=== PATIENT | male | born 1950 | race Caucasian/White ===

== ENCOUNTER → 2016-03-29 | Outpatient (CLI) | payer OTHER ==
[~2016-03-29] MED LIST: ALL300 PO; ASPI325T45 PO; ATOR-26 PO; CHOL100010 PO; OFLO0.3S4 OPR; RAMI10CA PO; RAMI5CAP32 PO; SILD100T PO
[2016-03-29 11:18] LABS: BLOOD UREA NITROGEN 12 mg/dl (7-18); BUN/CREATININE RATIO 12.4 (10-20); CALCIUM 9.2 mg/dl (8.5-10.1); CARBON DIOXIDE 27 mmol/L (21-32); CHLORIDE 105 mmol/L (98-107); GLUCOSE 97 mg/dl (70-99); SODIUM 140 mmol/L (136-145)
== END | disposition home or self-care (01) ==
LOC: C.LABBC 08:49
PROVIDERS: ATTEND Internal Medicine Geriatric Medicine
DX: I10 Essential (primary) hypertension (principal); M19.90 Unspecified osteoarthritis, unspecified site; M10.9 Gout, unspecified; E78.5 Hyperlipidemia, unspecified; E04.1 Nontoxic single thyroid nodule; E55.9 Vitamin D deficiency, unspecified

== ENCOUNTER → 2016-04-06 | Outpatient (CLI) | payer OTHER ==
--- NOTE | 2016-04-06 10:30 | DIAGNOSTIC IMAGING REPORT ---
THYROID ULTRASOUND CLINICAL HISTORY: Solitary thyroid nodule. COMPARISON STUDY: Carotid ultrasound April 08, 2014 and thyroid ultrasound April 12, 2015. TECHNIQUE: Sonography of the thyroid gland was performed. FINDINGS: The right thyroid lobe measures 5.1 x 2.1 x 2.3 cm and the left lobe measures 4.2 x 1.5 x 1.7 cm. The previously biopsied 1.3 x 1 x 1 cm hypoechoic round right lobe thyroid nodule is unchanged since initial ultrasound of April 08, 2014. No additional thyroid nodules are present. IMPRESSION: No change in the previously biopsied 1.3 cm right lobe thyroid nodule. Electronically signed by: Geo Stuart M.D. 04/06/2016 10:29 AM Dictated Date/Time: 04/06/2016 10:19 AM
== END | disposition home or self-care (01) ==
LOC: C.ULTRBC 09:55
PROVIDERS: ATTEND Internal Medicine Geriatric Medicine
DX: E04.1 Nontoxic single thyroid nodule (principal)

== ENCOUNTER → 2016-06-07 | Day surgery (SDC) | payer OTHER ==
[2016-05-30 08:08] VITALS: Ht 177.8 cm; Wt 105.5 kg
[~2016-06-07] VITALS: Ht 177.8 cm; Wt 105.5 kg
[~2016-06-07] MED LIST changes: +500ML BSS 0.3ML EPI 1:1000PF IRRIG ONE; +ACETAMINOPHEN 325 MG TAB PO PRN; -ALL300 PO; +AMVISC PLUS 0.8ML SYRINGE INT OCU ONE; +ATROPINE SULFATE 0.1 MG/ML 5ML SYR IV PRN; +AcetaZOLAMIDE 250 MG TAB PO SCH; +BETAXOLOL HCL 0.25% OP SUSP PER DROP CHARGE OPR SCH; +BRIMONIDINE TART 0.2% OP SOLN PER DROP CHARGE ONE; +BSS FLUSH ONE; +ENDOCOAT 0.85ML SYRINGE INT OCU ONE; +EpHEDrine SULFATE INJ 50 MG/ML AMP IV PRN; +EpINEphrine INJ 1MG/ML AMP 1 MG/ML AMP ONE; +FENTANYL CITRATE INJ 50 MCG/1 ML 2 ML VIAL IV PRN; +FLUMAZENIL 0.1 MG/1 ML 10 ML VIAL IV PRN; +HYDROmorphone INJ 2 MG/ML SYR/VIAL IV PRN; +LABETALOL HCL IV 5 MG/ML 20ML IV PRN; +LACTATED RINGER'S 1000ML 500 ML IV SCH; +LIDOCAINE 4% OP SOLN DROP CHARGE ONE; +LIDOCAINE 4% OP SOLN DROP CHARGE OPR SCH; +LIDOCAINE HCL 1% MPF 2 ML VIAL ONE; +MEPERIDINE HCL 25 MG/ML CARP IV PRN; +MIDAZOLAM HCL 1 MG/ML 2ML VIAL ONE; +MIX: 4ML BSS 1ML EPI 1:1000 PF INSTIL ONE; +MOXIFLOXACIN OPH SOLN PER DROP CHARGE ONE; +NALOXONE HCL 0.4 MG/1 ML VIAL/CARP IV PRN; +NURSING VERBAL MED ORDER ONE; +OCUCOAT 1 ML SOLN IO ONE; +ONDANSETRON INJ 2 MG/ML 2 ML VIAL IV PRN; +PHENYLEPHRINE 100MCG/ML 5ML SYR IV PRN; +POVIDONE-IODINE OP SOLN 30 ML BTL ONE; +PROPARACAINE 0.5% OP SOLN PER DROP CHARGE OPR SCH; -RAMI5CAP32 PO; -SILD100T PO; +TOBRAMYCIN/DEXAMETHASONE OPH OINT PER APPLN CHARGE ONE
[2016-06-07] MEDS: PHENYLEPHRINE HCL 2.5% OP SOLN PER DROP CHARGE OPR SCH ×2 (07:20→07:25)
[2016-06-07] MEDS: TROPICAMIDE 1% OP SOLN PER DROP CHARGE OPR SCH ×2 (07:21→07:26)
[2016-06-07] MEDS: CYCLOPENTOLATE HCL 1% OP SOLN PER DROP CHARGE OPR SCH ×2 (07:22→07:27)
[2016-06-07] MEDS: MOXIFLOXACIN OPH SOLN PER DROP CHARGE OPR SCH ×2 (07:23→07:34)
--- NOTE | 2016-06-07 07:51 | History & Physical Bridge - [place] ---
H&P Re-Evaluation Bridge Note: I have examined the patient, reviewed the History & Physical and in the interval since the performance of the History & Physical I have noted the following changes of clinical significance: No changes noted
--- NOTE | 2016-06-07 08:07 | Discharge Instructions-SurgCtr ---
Discharge Instructions Date of Service Jun 07, 2016. Visit Reason for Visit: Cataract Right Eye Discharge Discharge Diagnosis / Problem: lens implant right eye Discharge Goals Goal(s): Improve function Activity Recommendations Activity Limitations: resume your previous activity Lifting Limitations: no more than 10 pounds Exercise/Sports Limitations: gradually increase as tolerated May Resume Sexual Activity: when tolerated Shower/Bathe: tomorrow Driving or Machine Use: resume 1 day after discharge Anesthesia . Post Anesthesia Instructions: If you have had General Anesthesia or IV Sedation: * Do not drive today. * Resume driving when surgeon permits. * Do not make important decisions or sign legal documents today. * Call surgeon for: 1. Temperature elevations greater than 101 degrees F. 2. Uncontrollable pain. 3. Excessive bleeding. 4. Persistent nausea and vomiting. 5. Medication intolerance (nausea, vomiting or rash). * For nausea and vomiting use only clear liquids such as: tea, soda, bouillon until nausea subsides, then gradually increase diet as tolerated. * If you have any concerns or questions, call your surgeon's office. If physician is unavailable and it is an emergency, call 911 or go to the nearest emergency room. . Instructions / Follow-Up Instructions / Follow-Up ACTIVITY RECOMMENDATIONS: * Light activities. * Mild irritation and blurred vision are common for the first few days. * You may walk outside, read, watch television. * Redness around the white part of the eye is common. MEDICATIONS: Resume previous medications unless instructed otherwise by your surgeon. * Take white Diamox (Acetazolamide) tablet at 1 pm today. Start all eye drops at 1 pm today: * Eye drops (today and tomorrow): Prednisone - one drop in operative eye every 3 hours while awake Ofloxacin - one drop in operative eye every 3 hours while awake SPECIAL CARE INSTRUCTIONS: * Tape plastic shield over eye to sleep at night. Call your doctor at with any concerns or problems. FOLLOW UP VISIT: Follow-up with Dr Jane at [place] office as scheduled. Diet Recommendations Home Diet: no limitations Procedures Procedures Performed: cataract extraction with lens implant Pending Studies Studies pending at discharge: no Medical Emergencies . Who to Call and When: Medical Emergencies: If at any time you feel your situation is an emergency, please call 911 immediately. . Non-Emergent Contact Non-Emergency issues call your: Director Intelligence Analysis Programs Call Non-Emergent contact if: your pain is not controlled [phone] . . "Provider Documentation" section prepared by Elie Jane.
--- NOTE | 2016-06-07 08:08 | [facility] Operative Report ---
Operative Report Date of Service Jun 07, 2016. Operative Report 1. PREOPERATIVE DIAGNOSIS: Senile nuclear cataract, right eye. 2. POSTOPERATIVE DIAGNOSIS: Senile nuclear cataract, right eye. 3. PROCEDURE: Phacoemulsification of right cataract with posterior chamber lens implant, type Bausch [employer] Lomb, model MX60, power +17.0 diopters. ANESTHESIA: Local standby. SURGEON: Dr. Jane. COMPLICATIONS: None. OPERATING TIME: 10 minutes. 4. OPERATION AND FINDINGS: DESCRIPTION OF PROCEDURE: The right pupil was dilated. The anesthetic was administered using a topical technique. The right eye was prepped and draped. A speculum was placed. A clear corneal incision was formed. The chamber was filled with Amvisc Plus and Endocoat. Epinephrine solution was used. A paracentesis was placed. A capsulorrhexis was performed. The nucleus was hydrodissected. The lens was removed with phacoemulsification. Time was 5.74 seconds. The aspiration unit was used to remove the cortex. The capsule was filled with Amvisc Plus. The lens implant was folded and placed into the capsule. The incision was hydrated. The Amvisc was aspirated. The wound was secure. The chamber was deep. The pupil was round. Brimonidine, TobraDex ointment and Vigamox solution were placed. The speculum was removed. The patient was returned to the Recovery Room in stable condition. I attest to the content of the Intraoperative Record and any orders documented therein. Any exceptions are noted below. The scribe's documentation has been prepared in my presence, under my direction and personally reviewed by me in its entirety. I confirm that the note above accurately reflects all work, treatment, procedures, and medical decision making performed by me. I personally scribed for Elie Jane M.D. (GEMA) on 06/07/16 at 08:08. Electronically submitted by Erin Carr (PERLA).
[2016-06-07 08:11] VITALS: TEMP 36.7
--- NOTE | 2016-06-07 08:28 | Anesthesia Progress Nt - [facility] ---
Anesthesia Post Op Note Date & Time Jun 07, 2016 at 08:27 Vital Signs Pain Intensity: 0 Vital Signs Past 12 Hours Date Time Temp Pulse Resp B/P Pulse Ox O2 Delivery O2 Flow Rate FiO2 06/07/16 08:11 36.7 73 18 107/69 94 Room Air 06/07/16 07:08 36.6 68 18 145/84 94 Room Air Notes Mental Status: alert / awake / arousable, participated in evaluation Pt Amnestic to Procedure: Yes Nausea / Vomiting: adequately controlled Pain: adequately controlled Airway Patency, RR, SpO2: stable & adequate BP & HR: stable & adequate Hydration State: stable & adequate Anesthetic Complications: no major complications apparent
[2016-06-07 08:34] VITALS: BP 114/77; PULSE 73; O2SAT 95
== END | disposition home or self-care (01) ==
LOC: X.SURG 06:57
PROVIDERS: ATTEND Specialist
DX: H25.11 Age-related nuclear cataract, right eye (principal); I10 Essential (primary) hypertension; N42.9 Disorder of prostate, unspecified

== ENCOUNTER → 2016-06-21 | Day surgery (SDC) | payer OTHER ==
[2016-06-20 10:30] VITALS: Ht 177.8 cm; Wt 105.5 kg
[~2016-06-21] VITALS: Ht 177.8 cm; Wt 105.5 kg
[~2016-06-21] MED LIST changes: -ATROPINE SULFATE 0.1 MG/ML 5ML SYR IV PRN; +BETAXOLOL HCL 0.25% OP SUSP PER DROP CHARGE OPL SCH; -BETAXOLOL HCL 0.25% OP SUSP PER DROP CHARGE OPR SCH; -EpHEDrine SULFATE INJ 50 MG/ML AMP IV PRN; -FENTANYL CITRATE INJ 50 MCG/1 ML 2 ML VIAL IV PRN; -FLUMAZENIL 0.1 MG/1 ML 10 ML VIAL IV PRN; -HYDROmorphone INJ 2 MG/ML SYR/VIAL IV PRN; -LABETALOL HCL IV 5 MG/ML 20ML IV PRN; +LIDOCAINE 4% OP SOLN DROP CHARGE OPL SCH; -LIDOCAINE 4% OP SOLN DROP CHARGE OPR SCH; -MEPERIDINE HCL 25 MG/ML CARP IV PRN; -NALOXONE HCL 0.4 MG/1 ML VIAL/CARP IV PRN; -NURSING VERBAL MED ORDER ONE; -ONDANSETRON INJ 2 MG/ML 2 ML VIAL IV PRN; -PHENYLEPHRINE 100MCG/ML 5ML SYR IV PRN; +PROPARACAINE 0.5% OP SOLN PER DROP CHARGE OPL SCH; -PROPARACAINE 0.5% OP SOLN PER DROP CHARGE OPR SCH
[2016-06-21] MEDS: PHENYLEPHRINE HCL 2.5% OP SOLN PER DROP CHARGE OPL SCH ×2 (11:47→11:52)
[2016-06-21] MEDS: TROPICAMIDE 1% OP SOLN PER DROP CHARGE OPL SCH ×2 (11:48→11:53)
[2016-06-21] MEDS: CYCLOPENTOLATE HCL 1% OP SOLN PER DROP CHARGE OPL SCH ×2 (11:49→11:54)
[2016-06-21] MEDS: MOXIFLOXACIN OPH SOLN PER DROP CHARGE OPL SCH ×2 (11:50→12:00)
--- NOTE | 2016-06-21 12:24 | Discharge Instructions-SurgCtr ---
Discharge Instructions Date of Service Jun 21, 2016. Visit Reason for Visit: Cataract Left Eye Discharge Discharge Diagnosis / Problem: lens implant left eye Discharge Goals Goal(s): Improve function Activity Recommendations Activity Limitations: resume your previous activity Lifting Limitations: no more than 10 pounds Exercise/Sports Limitations: gradually increase as tolerated May Resume Sexual Activity: when tolerated Shower/Bathe: tomorrow Driving or Machine Use: resume 1 day after discharge Anesthesia . Post Anesthesia Instructions: If you have had General Anesthesia or IV Sedation: * Do not drive today. * Resume driving when surgeon permits. * Do not make important decisions or sign legal documents today. * Call surgeon for: 1. Temperature elevations greater than 101 degrees F. 2. Uncontrollable pain. 3. Excessive bleeding. 4. Persistent nausea and vomiting. 5. Medication intolerance (nausea, vomiting or rash). * For nausea and vomiting use only clear liquids such as: tea, soda, bouillon until nausea subsides, then gradually increase diet as tolerated. * If you have any concerns or questions, call your surgeon's office. If physician is unavailable and it is an emergency, call 911 or go to the nearest emergency room. . Instructions / Follow-Up Instructions / Follow-Up ACTIVITY RECOMMENDATIONS: * Light activities. * Mild irritation and blurred vision are common for the first few days. * You may walk outside, read, watch television. * Redness around the white part of the eye is common. MEDICATIONS: Resume previous medications unless instructed otherwise by your surgeon. * Take white Diamox (Acetazolamide) tablet at 2 pm today. Start all eye drops at 2 pm today: * Eye drops (today and tomorrow): Prednisone - one drop in operative eye every 3 hours while awake Ofloxacin - one drop in operative eye every 3 hours while awake SPECIAL CARE INSTRUCTIONS: * Tape plastic shield over eye to sleep at night. Call your doctor at with any concerns or problems. FOLLOW UP VISIT: Follow-up with Dr Jane at [place] office as scheduled. Diet Recommendations Home Diet: no limitations Procedures Procedures Performed: cataract extraction with lens implant Pending Studies Studies pending at discharge: no Medical Emergencies . Who to Call and When: Medical Emergencies: If at any time you feel your situation is an emergency, please call 911 immediately. . Non-Emergent Contact Non-Emergency issues call your: Barista Call Non-Emergent contact if: your pain is not controlled [phone] . . "Provider Documentation" section prepared by Elie Jane. .
--- NOTE | 2016-06-21 12:25 | [facility] Operative Report ---
Operative Report Date of Service Jun 21, 2016. Operative Report 1. PREOPERATIVE DIAGNOSIS: Senile nuclear cataract, left eye. 2. POSTOPERATIVE DIAGNOSIS: Senile nuclear cataract, left eye. 3. PROCEDURE: Phacoemulsification of left cataract with posterior chamber lens implant, type Bausch [employer] Lomb, model MX60, power +17.5 diopters. ANESTHESIA: Local standby. SURGEON: Dr. Jane. COMPLICATIONS: None. OPERATING TIME: 10 minutes. 4. OPERATION AND FINDINGS: DESCRIPTION OF PROCEDURE: The left pupil was dilated. The anesthetic was administered using a topical technique. The left eye was prepped and draped. A speculum was placed. A clear corneal incision was formed. The chamber was filled with Amvisc Plus and Endocoat. Epinephrine solution was used. A paracentesis was placed. A capsulorrhexis was performed. The nucleus was hydrodissected. The lens was removed with phacoemulsification. Time was 3.62 seconds. The aspiration unit was used to remove the cortex. The capsule was filled with Amvisc Plus. The lens implant was folded and placed into the capsule. The incision was hydrated. The Amvisc was aspirated. The wound was secure. The chamber was deep. The pupil was round. TobraDex ointment and Vigamox solution were placed. The speculum was removed. The patient was returned to the Recovery Room in stable condition. I attest to the content of the Intraoperative Record and any orders documented therein. Any exceptions are noted below. The scribe's documentation has been prepared in my presence, under my direction and personally reviewed by me in its entirety. I confirm that the note above accurately reflects all work, treatment, procedures, and medical decision making performed by me. I personally scribed for Elie Jane M.D. (GEMA) on 06/21/16 at 12:25. Electronically submitted by Erin Carr (PERLA).
[2016-06-21 12:30] VITALS: TEMP 36.9
--- NOTE | 2016-06-21 12:38 | Anesthesia Progress Nt - [facility] ---
Anesthesia Post Op Note Date & Time Jun 21, 2016 at 12:38 Vital Signs Pain Intensity: 0 Vital Signs Past 12 Hours Date Time Temp Pulse Resp B/P Pulse Ox O2 Delivery O2 Flow Rate FiO2 06/21/16 12:30 36.9 65 18 147/90 98 Room Air 06/21/16 11:39 36.6 70 18 155/92 95 Room Air Notes Mental Status: alert / awake / arousable, participated in evaluation Pt Amnestic to Procedure: No (recall as expected) Nausea / Vomiting: adequately controlled Pain: adequately controlled Airway Patency, RR, SpO2: stable & adequate BP & HR: stable & adequate Hydration State: stable & adequate Anesthetic Complications: no major complications apparent Pt doing well.
[2016-06-21 12:52] VITALS: BP 149/93; PULSE 68; O2SAT 97
== END | disposition home or self-care (01) ==
LOC: X.SURG 11:28
PROVIDERS: ATTEND Specialist
DX: H25.12 Age-related nuclear cataract, left eye (principal); I10 Essential (primary) hypertension

== ENCOUNTER → 2016-10-09 | Outpatient (CLI) | payer OTHER ==
[~2016-10-09] MED LIST changes: -500ML BSS 0.3ML EPI 1:1000PF IRRIG ONE; -ACETAMINOPHEN 325 MG TAB PO PRN; -AMVISC PLUS 0.8ML SYRINGE INT OCU ONE; -AcetaZOLAMIDE 250 MG TAB PO SCH; -BETAXOLOL HCL 0.25% OP SUSP PER DROP CHARGE OPL SCH; -BRIMONIDINE TART 0.2% OP SOLN PER DROP CHARGE ONE; -BSS FLUSH ONE; -ENDOCOAT 0.85ML SYRINGE INT OCU ONE; -EpINEphrine INJ 1MG/ML AMP 1 MG/ML AMP ONE; -LACTATED RINGER'S 1000ML 500 ML IV SCH; -LIDOCAINE 4% OP SOLN DROP CHARGE ONE; -LIDOCAINE 4% OP SOLN DROP CHARGE OPL SCH; -LIDOCAINE HCL 1% MPF 2 ML VIAL ONE; -MIDAZOLAM HCL 1 MG/ML 2ML VIAL ONE; -MIX: 4ML BSS 1ML EPI 1:1000 PF INSTIL ONE; -MOXIFLOXACIN OPH SOLN PER DROP CHARGE ONE; -OCUCOAT 1 ML SOLN IO ONE; -POVIDONE-IODINE OP SOLN 30 ML BTL ONE; -PROPARACAINE 0.5% OP SOLN PER DROP CHARGE OPL SCH; -TOBRAMYCIN/DEXAMETHASONE OPH OINT PER APPLN CHARGE ONE
[2016-10-09 14:02] LABS: ESTIMATED AVERAGE GLUCOSE 123 mg/dl; HA1C FLAG Normal (Normal)
[2016-10-09 14:04] LABS: BASO % 0.7 %; BASO ABS # 0.04 K/uL (0-0.2); COMPLETE YES; IG% 0.2 %; LYMPH % 29.6 %; LYMPH ABS # 1.82 K/uL (1.2-3.4); MEAN CELL VOLUME 90.9 fL (80-100); MEAN CORPUSCULAR HEMOGLOBIN 29.9 pg (25-34); MEAN CORPUSCULAR HGB CONC 32.9 g/dl (32-36); MEAN PLATELET VOLUME 9.6 fL (7.4-10.4); MONO % 12.4 %; NEUT % 55.1 %; PLATELET COUNT 204 K/uL (130-400); RED BLOOD COUNT 4.95 M/uL (4.7-6.1); WHITE BLOOD COUNT 6.15 K/uL (4.8-10.8)
[2016-10-09 14:18] LABS: ALT/SGPT 37 U/L (12-78); AST/SGOT 27 U/L (15-37); BLOOD UREA NITROGEN 14 mg/dl (7-18); BUN/CREATININE RATIO 14.2 (10-20); CARBON DIOXIDE 25 mmol/L (21-32); CHLORIDE 107 mmol/L (98-107); GLUCOSE 92 mg/dl (70-99); SODIUM 139 mmol/L (136-145); URIC ACID 8.4 mg/dl (2.6-7.2)
[2016-10-09 14:29] LABS: ALKALINE PHOSPHATASE 61 U/L (45-117); CHOLESTEROL 203 mg/dl (0-200); CHOLESTEROL/HDL RATIO 2.8; HDL CHOLESTEROL 73 mg/dl; LDL CHOLESTEROL CALCULATED 95 mg/dl; PROSTATE SPECIFIC ANTIGEN 0.027 ng/ml (0.000-4.000); TRIGLYCERIDES 175 mg/dl (0-150); VERY LOW DENSITY LIPOPROT CALC 35 mg/dl
--- NOTE | 2016-11-06 07:53 | CODING QUERY MEDICAL NECESSITY ---
CQSUPPORTING DIAGNOSIS NEEDED A supporting diagnosis is required for the test/procedure performed on this patient in order for us to be reimbursed by the patient's insurance. Please provide a supporting diagnosis for the following test/procedure listed below next to the test name along with your signature. *If there is no additional diagnosis for this patient that would support the following test/procedure please document that below next to the test/procedure. Test(s)/Procedure(s) that require a supporting diagnosis: DOS 10/09/16 PROSTATE SPECIFIC (PSA) TEST Provider Signature: Date: Thank you Rosalind Urbano [facility] Information Management Once completed, please kindly fax back to [phone] For questions please call [phone]
--- NOTE | 2016-11-06 07:56 | CODING QUERY MEDICAL NECESSITY ---
CQSUPPORTING DIAGNOSIS NEEDED A supporting diagnosis is required for the test/procedure performed on this patient in order for us to be reimbursed by the patient's insurance. Please provide a supporting diagnosis for the following test/procedure listed below next to the test name along with your signature. *If there is no additional diagnosis for this patient that would support the following test/procedure please document that below next to the test/procedure. Test(s)/Procedure(s) that require a supporting diagnosis: DOS 10/09/16 VITAMIN B12 TEST GLYCATED HEMOGLOBIN TEST Provider Signature: Date: Thank you Rosalind Urbano Health Information Management Once completed, please kindly fax back to [phone] For questions please call [phone]
== END | disposition home or self-care (01) ==
LOC: C.LABBC 10:02
PROVIDERS: ATTEND Urology
DX: I10 Essential (primary) hypertension (principal); M19.90 Unspecified osteoarthritis, unspecified site; E04.1 Nontoxic single thyroid nodule; E78.5 Hyperlipidemia, unspecified; E55.9 Vitamin D deficiency, unspecified; G62.9 Polyneuropathy, unspecified; C61 Malignant neoplasm of prostate; R39.9 Unspecified symptoms and signs involving the genitourinary system; R73.9 Hyperglycemia, unspecified

== ENCOUNTER → 2017-05-07 | Outpatient (CLI) | payer OTHER ==
[2017-05-07 15:47] LABS: BLOOD UREA NITROGEN 16 mg/dl (7-18); CALCIUM 9.6 mg/dl (8.5-10.1); CARBON DIOXIDE 28 mmol/L (21-32); CREATININE 1.07 mg/dl (0.60-1.40); GLUCOSE 94 mg/dl (70-99); POTASSIUM 4.3 mmol/L (3.5-5.1); SODIUM 139 mmol/L (136-145)
== END | disposition home or self-care (01) ==
LOC: C.LABBC 10:09
PROVIDERS: ATTEND Internal Medicine Geriatric Medicine
DX: I10 Essential (primary) hypertension (principal); E78.5 Hyperlipidemia, unspecified; R73.9 Hyperglycemia, unspecified

== ENCOUNTER 2019-02-20 07:57 | Inpatient (IN) ==
--- NOTE | 2019-02-05 11:55 | PAT Medication Instructions ---
Medication Instructions Date of Service February 05, 2019 Home Medications aspirin 325 mg PO QAM atorvastatin 80 mg PO QPM cholecalciferol (vitamin D3) [Vitamin D3] 1,000 unit PO QAM cyanocobalamin (vitamin B-12) 1,000 mcg capsule 2,000 mcg PO QAM sildenafil 20 mg tablet 20 - 100 mg PO UD PRN telmisartan 80 mg PO QAM ASK your prescriber and surgeon aspirin 325 mg PO QAM DO NOT take the morning of surgery cholecalciferol (vitamin D3) [Vitamin D3] 1,000 unit PO QAM cyanocobalamin (vitamin B-12) 1,000 mcg capsule 2,000 mcg PO QAM sildenafil 20 mg tablet 20 - 100 mg PO UD PRN telmisartan 80 mg PO QAM Take evening before surgery atorvastatin 80 mg PO QPM sildenafil 20 mg tablet 20 - 100 mg PO UD PRN (if needed) Other Notes If you have any questions please call us at [phone] or [phone] or [phone] or [phone]
--- NOTE | 2019-02-05 12:05 | PAT Medication Instructions ---
Medication Instructions Date of Service February 05, 2019 Home Medications aspirin 325 mg PO QAM atorvastatin 80 mg PO QPM cholecalciferol (vitamin D3) [Vitamin D3] 1,000 unit PO QAM cyanocobalamin (vitamin B-12) 1,000 mcg capsule 2,000 mcg PO QAM telmisartan 80 mg PO QAM sildenafil 1 tab PO UD PRN ASK your prescriber and surgeon aspirin 325 mg PO QAM DO NOT take the morning of surgery cholecalciferol (vitamin D3) [Vitamin D3] 1,000 unit PO QAM cyanocobalamin (vitamin B-12) 1,000 mcg capsule 2,000 mcg PO QAM telmisartan 80 mg PO QAM sildenafil 1 tab PO UD PRN Take evening before surgery atorvastatin 80 mg PO QPM sildenafil 1 tab PO UD PRN (if needed) Other Notes If you have any questions please call us at [phone] or [phone] or [phone] or [phone]
--- NOTE | 2019-02-06 09:52 | Anesthesiology Consultation ---
Date of Service February 06, 2019 Assessment & Plan (1) Encounter for pre-operative examination: Chart Review Chart Review: Acceptable Risk for Surgery and Patient seen in Pre Admission Testing Teaching & Discussion Instructed NPO after midnight before surgery, except medications with 15 cc of water. Medication instructions provided according to the PAT guidelines. History Surgery Operation Date: 02/20/19 09:55 Proposed Procedures p L2-S1 Decompression and Fusion, Spinal Cord Monitoring - Michi Carvajal, Height/Weight Height: 5 ft 10 in Weight: 116 kg Allergies Allergy/AdvReac Type Severity Reaction Status Date / Time ramipril Allergy Mild Swollen Verified 01/30/19 12:37 lips Medications Home Medications Medication Instructions Recorded Confirmed Last Taken aspirin 325 mg PO QAM 03/17/18 01/30/19 Unknown atorvastatin 80 mg PO QPM 03/17/18 01/30/19 Unknown cholecalciferol (vitamin D3) 1,000 unit PO QAM 03/17/18 01/30/19 Unknown [Vitamin D3] cyanocobalamin (vitamin B-12) 2,000 mcg PO QAM cap 12/01/18 01/30/19 Unknown 1,000 mcg capsule telmisartan 80 mg PO QAM 01/30/19 01/30/19 Unknown sildenafil 1 tab PO UD PRN 02/05/19 02/05/19 Unknown Past Medical History Medical History Atrial fibrillation Single episode 10-15 YEARS AGO - possibly due to extreme amount of caffeine Cardiac murmur Mild mitral regurgitation and moderate AV sclerosis present on 2016 echo (no stenosis). History of gout History of prostate cancer s/p prostatectomy History of skin cancer BACK, RT ELBOW (REMOVED) Hypercholesterolemia Hypertension (Chronic) Internal inguinal hernia Mild sleep apnea PRESCRIBED CPAP BUT NOT CURRENTLY USING BC OF INSURANCE ISSUES Osteoarthritis Exercise / Class Metabolic Activity II 4-5 Yardwork/Stairs/Walk up hill (POssibly mild SOB, no chest pain with 1 FOS. Does 1 FOS often at home) Past Surgical History Surgical History H/O prostatectomy History of carpal tunnel release History of cataract surgery History of colonoscopy History of prostate biopsy History of tooth extraction Status post biopsy of thyroid gland Past Anesthesia History No Hx of Anesthesia Complications and No Family Hx of Anesthesia Complications History of PONV No Hx of PONV and No Hx of Motion Sickness Social History Smoking Status: Never smoker Do You Dip or Chew Tobacco: No (QUIT 5-6 YEARS AGO) Hx Alcohol Use: Yes Alcohol type: beer alcohol intake frequency: a few times a month Hx Substance Use: No substance use type: does not use Review of Systems Pt denies any recent chest pain, shortness of breath, palpitations, cough, fever. +sinus congestion currently Physical Exam Vital Signs BP: 128/75 P: 97bpm SPO2: 94% RA T: 98.3 F R: 18 ENMT Mouth: + dental restorations (upper L cuspid implant) and + chipped teeth (small chip on front lower incisor); no loose teeth Thyromental Distance: > or= 3.5 Finger Breadths (4) Mallampati Class: III Neck + short neck and + thick neck; neck extension not limited Respiratory normal respiratory effort Auscultation: lungs clear to auscultation bilaterally Cardiovascular Rate/Rhythm: regular rate and regular rhythm Heart Sounds: + murmur (II/ systolic RSB) Vessels: no carotid bruit Extremities: no edema Testing Laboratory Results 02/06/19 10:05 02/06/19 10:05 PT 10.3 Seconds (9.0-12.0) 02/06/19 10:05 INR 1.0 (0.9-1.1) 02/06/19 10:05 APTT 24.5 Seconds (21.0-31.0) 02/06/19 10:05 Urine Color Yellow 02/06/19 Unknown Urine Appearance Clear (Clear) 02/06/19 Unknown Urine pH 5.0 (4.5-7.5) 02/06/19 Unknown Ur Specific [place] 1.026 (1.000-1.030) 02/06/19 Unknown Urine Protein Negative (Negative) 02/06/19 Unknown Urine Glucose (UA) Negative (Negative) 02/06/19 Unknown Urine Ketones Negative (Negative) 02/06/19 Unknown Urine Nitrite Negative (Negative) 02/06/19 Unknown Ur Leukocyte Esterase Negative (Negative) 02/06/19 Unknown Blood Type A Positive 02/06/19 10:05 Antibody Screen NEGATIVE 02/06/19 10:05 Electrocardiogram Date: 02/06/19 Findings: + NSR @ (81bpm) Stress Test Date: 05/10/16 Type: exercise Negative exercise stress echocardiogram for ischemia at greater than 100% MPHR. The patient complained of no exercise-induced chest pain. The baseline echocardiogram notes normal LV function. There is mild mitral regurgitation. Moderate AV sclerosis is present. There is no aortic valve stenosis.
[2019-02-06 11:51] LABS: Appearance Urine Clear (Clear); Bilirubin Urine Negative (Negative); Blood Urine Negative (Negative); Color Urine Yellow; Glucose Urine UA Negative (Negative); Ketones Urine Negative (Negative); Leukocyte Esterase Urine Negative (Negative); Nitrite Urine Negative (Negative); Protein Urine Negative (Negative); Specific Gravity Urine 1.026 (1.000-1.030); Urobilinogen Urine Negative (Negative)
[2019-02-06 11:52] LABS: Basophils # (auto) 0.03 K/uL (0-0.2); Basophils % (auto) 0.4 %; Eosinophils # (auto) 0.28 K/uL (0-0.5); Eosinophils % (auto) 4.1 %; Hematocrit (blood only) 43.7 % (42-52); Hemoglobin 14.5 g/dL (14.0-18.0); Lymphocytes # (auto) 1.44 K/uL (1.2-3.4); Lymphocytes % (auto) 20.9 %; Mean Corpuscular Hgb Conc 33.2 g/dL (32-36); Mean Corpuscular Volume 90.3 fL (80-100); Mean Platelet Volume 9.9 fL (7.4-10.4); Monocytes # (auto) 1.08 K/uL (0.11-0.59); Monocytes % (auto) 15.7 %; Neutrophils # (auto) 4.06 K/uL (1.4-6.5); Neutrophils % (auto) 58.9 %; Platelet Count 207 K/uL (130-400); RDW Coefficient of Variation 14.1 % (11.5-14.5); RDW Standard Deviation 46.3 fL (36.4-46.3); Red Blood Count 4.84 M/uL (4.7-6.1); White Blood Count 6.89 K/uL (4.8-10.8)
[2019-02-06 12:00] LABS: BUN Creatinine Ratio 16.1 (10-20); Calcium 9.5 mg/dl (8.5-10.1); Creatinine Clr Calc Pharmacy 88.6 ml/min; Est GFR (African American) 89.1; Est GFR (Non-African American) 76.8; Potassium 4.1 mmol/L (3.5-5.1)
[2019-02-06 12:04] LABS: Partial Thromboplastin Ratio 0.9; Partial Thromboplastin Time 24.5 Seconds (21.0-31.0); Prothrombin Time 10.3 Seconds (9.0-12.0)
[~2019-02-20 07:57] MED LIST changes: +ACETAMINOPHEN 500 MG TAB PO SCH; -ASPI325T45 PO; -ATOR-26 PO; +CEFAZOLIN 2000MG 2,000 MG/15 ML SYR IV SCH; -CHOL100010 PO; +CeleBREX 200 MG CAP PO SCH; +GABAPENTIN 300 MG CAP PO SCH; +HYDROmorphone INJ 2 MG/ML SYR/VIAL ONE; +LR 15ML/HR IV SCH; +MIDAZOLAM HCL 1 MG/ML 2ML VIAL ONE; -OFLO0.3S4 OPR; -RAMI10CA PO; +fentaNYL citrate 100 MCG/2 ML VIAL ONE
[2019-02-20] MEDS ORDERED: ePHEDrine sulfate 50 MG/ML AMP IV PRN (08:45)
[2019-02-20] MEDS ORDERED: fentaNYL citrate 100 MCG/2 ML VIAL IV PRN (08:45)
[2019-02-20] MEDS ORDERED: MEPERIDINE HCL 25 MG/ML CARP IV PRN (08:45)
[2019-02-20] MEDS ORDERED: HYDROmorphone INJ 1 MG/ML SYRINGE IV PRN ×2 (08:45→16:47)
[2019-02-20] MEDS ORDERED: ATROPINE SULFATE 0.1 MG/ML 10ML SYR IV PRN (08:45)
[2019-02-20] MEDS ORDERED: LABETALOL HCL IV 5 MG/ML 20ML IV PRN (08:45)
[2019-02-20] MEDS ORDERED: ONDANSETRON INJ 2 MG/ML 2 ML VIAL IV PRN ×2 (08:45→16:47)
[2019-02-20] MEDS ORDERED: PHENYLEPHRINE 100MCG/ML 5ML SYR IV PRN (08:45)
--- NOTE | 2019-02-20 09:50 | History & Physical Report ---
Date of Service February 20, 2019 Assessment & Plan (1) Neurogenic claudication due to lumbar spinal stenosis: L2-S1 decompression fusion Present on Admission?: Yes History of Present Illness Chief Complaint: Back and bilateral leg pain Primary Care Provider: Elian Vazquez DO This is a 68-year-old male who presents with back and bilateral leg pain. After failing extensive course of nonoperative care is here for surgical invention. Allergies Allergy/AdvReac Type Severity Reaction Status Date / Time ramipril Allergy Mild Swollen Verified 02/20/19 08:44 lips Home Medications Home Medications Medication Instructions Recorded Confirmed Type aspirin 325 mg PO QAM 03/17/18 02/20/19 History atorvastatin [Lipitor] 80 mg PO QPM 03/17/18 02/20/19 History cholecalciferol (vitamin D3) 1,000 unit PO QAM 03/17/18 02/20/19 History [Vitamin D3] cyanocobalamin (vitamin B-12) 2,000 mcg PO QAM cap 12/01/18 02/20/19 History 1,000 mcg capsule telmisartan 80 mg PO QAM 01/30/19 02/20/19 History sildenafil (pulm.hypertension) 20 20 mg PO DAILY PRN tab 02/07/19 02/20/19 History mg tablet Past Med/Surg History Medical History Atrial fibrillation Single episode 10-15 YEARS AGO - possibly due to extreme amount of caffeine Cardiac murmur Mild mitral regurgitation and moderate AV sclerosis present on 2017 echo (no stenosis). History of gout History of prostate cancer s/p prostatectomy History of skin cancer BACK, RT ELBOW (REMOVED) Hypercholesterolemia Hypertension (Chronic) Internal inguinal hernia Mild sleep apnea PRESCRIBED CPAP BUT NOT CURRENTLY USING BC OF INSURANCE ISSUES Osteoarthritis Surgical History H/O prostatectomy History of carpal tunnel release History of cataract surgery History of colonoscopy History of prostate biopsy History of tooth extraction Status post biopsy of thyroid gland Social History Preferred Language: Slovak Communication Ability: Effective Machine Sewer Required: No Beliefs That Will Affect Care: None marital status: / Current Living Situation: Alone current occupational status: retired Other Information That Helps Us Care for You: No Feels Safe at Home: Yes Safety Concerns: Feels Safe At This Time Smoking Status: Never smoker Do You Dip or Chew Tobacco: No (QUIT 5-6 YEARS AGO) ; Second Hand Exposure: No ; Tobacco Cessation Education Requested by Patient: No Hx Alcohol Use: Yes Alcohol type: beer Hx Substance Use: No Physical Exam Physical Exam: Patient is alert and oriented neurologically intact. Results & Data Vital Signs (Past 12 Hours) Vital Signs Temp Pulse Resp BP Pulse Ox 02/20/19 08:48 36.9 C 82 20 132/92 93
--- NOTE | 2019-02-20 09:50 | History & Physical Bridge Note ---
Date of Service February 20, 2019 History & Physical Bridge Note I have examined the patient, reviewed the History & Physical and in the interval since the performance of the History & Physical I have noted the following changes of clinical significance: no changes noted
[2019-02-20] MEDS ORDERED: BUPIVACAINE/EPINEPHRINE 0.5% MPF 1:200,000 10 ML VIAL ONE (10:04)
[2019-02-20] MEDS ORDERED: BACITRACIN INJ 50,000 UNIT VIAL ONE (10:05)
[2019-02-20] MEDS ORDERED: fentaNYL citrate 100 MCG/2 ML VIAL ONE ×8 (10:41→13:54)
[2019-02-20] MEDS ORDERED: FLOSEAL HEMOSTATIC MATRIX 10ML TOP ONE (10:54)
[2019-02-20] MEDS ORDERED: HYDROmorphone INJ 2 MG/ML SYR/VIAL ONE ×3 (10:55→13:54)
[2019-02-20] MEDS ORDERED: ROCURONIUM BROMIDE 10 MG/ML 5 ML VIAL ONE (10:56)
[2019-02-20] MEDS ORDERED: PROPOFOL IV EMULSION 10 MG/ML 20 ML VIAL IV ONE (10:56)
[2019-02-20] MEDS ORDERED: LIDOCAINE HCL 2% 2 ML VIAL/AMP(20MG/ML) INFIL ONE (10:56)
[2019-02-20] MEDS ORDERED: ONDANSETRON INJ 2 MG/ML 2 ML VIAL ONE (10:56)
[2019-02-20] MEDS ORDERED: DEXAMETHASONE SOD INJ 4 MG/ML VIAL ONE (10:56)
[2019-02-20] MEDS ORDERED: ALBUMIN HUMAN 5% 12.5 GM/250 ML VIAL IV ONE ×2 (12:14→12:56)
[2019-02-20 13:14] LABS: Hematocrit (blood only) 35.8 % (42-52); Hemoglobin 11.9 g/dL (14.0-18.0)
[2019-02-20 13:30] LABS: Hematocrit (blood only) 33.3 % (42-52); Hemoglobin 11.1 g/dL (14.0-18.0)
[2019-02-20] MEDS ORDERED: CEFAZOLIN 250 MG/ML 1 GM VIAL ONE (13:36)
--- NOTE | 2019-02-20 13:44 | Fluoroscopy Report ---
[place] lumbar spine 2-3V CLINICAL HISTORY: L2-S1 DECOMPRESSION/FUSION COMPARISON STUDY: Lumbar spine MRI January 01, 2019. FLUOROSCOPY TIME: 33 seconds. FLUOROSCOPIC IMAGES: 3 FINDINGS: These images demonstrate a posterior decompression. There are bilateral pedicle screws from L2 through S1 with interconnecting rods. Hardware is intact. There are no unexpected radiopaque fore ign bodies. IMPRESSION: Fluoroscopic images demonstrating a posterior decompression with bilateral screw fusion from L2 through S1. ACT 112: Negative or not required by law. Electronically signed by: Geo Stuart M.D. 02/20/2019 1:43 PM
--- NOTE | 2019-02-20 13:57 | Operative Report ---
Post Operative Report Pre & Post Diagnosis Operation Date: 02/20/19 09:55 Pre-Op Diagnosis: Spinal stenosis with neurogenic claudication Post-Op Diagnosis: Same I identified the patient and participated in the time-out.: Yes Procedure Operation Date: 02/20/19 09:55 Actual Procedures #1 lumbar decompression with bilateral medial facetectomies and foraminotomies L2-3 L3-4 L4-5 L5-S1. #2 posterior spinal fusion L2-3 L3-4 L4-5 L5-S1. #3 placed posterior segmental instrumentation including a cross-link from L2-S1. #4 placement locally harvested morselized autograft in the posterior lateral gutters. #5 placement infuse collagen sponge, master graft in the posterior lateral gutters from L2-S1. Surgeon Michi Carvajal, DO Rattling Machine Tender None Estimated Blood Loss 1,750 Findings See Below The patient is 5 foot 10 inches tall weighing over 115 kg with a BMI in excess of 36. The patient's body habitus as well as significant blood loss in excess of 1700 cc created significant technical difficulty throughout the procedure adding at least 50% increase in operative time. Specimens None Indications This is a 68-year-old male presents with above-mentioned diagnosis after failing extensive course of nonoperative care elected to go with above-mentioned procedure. Description of Procedure Patient was met with identified informed consent obtained. Patient was then taken to the operative suite underwent intubation placed in a prone position the Porter table on top of the Sohan frame. All bony prominences well-padded eyes inspected to ensure no external pressure placed upon up at this point the lumbar spine was prepped and draped in normal sterile fashion. Sharp dissection with the assistance of Bovie cautery was performed down to and exposing the lamina and transverse processes of L2-L3-L4 L5 and the sacral ala bilaterally. From a caudal cephalad fashion complete laminectomy of L5 L4 L3 and L2 was performed including bilateral medial facetectomies and foraminotomies addressing severe spinal stenosis. Pedicle screw was then placed in L2 L3-L4-L5 and the S1 levels bilaterally with assistance of fluoroscopy and the appropriately sized shelbi locked into position. A cross-link was also locked in position. The transverse processes of L2-L3 L4-L5 and sacral ala were then burred to subcortical bleeding bone. Infuse collagen sponge master graft local autograft was then placed in the posterior lateral gutters. 15 round PARAM drain inserted. Incision was then closed with 1 Vicryl in the fascia 2-0 Vicryl subcutaneously and 4 Monocryl for final skin closure. Steri-Strips dressings placed. Patient awakened taken to PACU stable disc. Please note spinal cord monitoring was utilized that the procedure no changes noted. I attest to the content of the Intraoperative Record and any orders documented therein. Any exceptions are noted below.
[2019-02-20] MEDS ORDERED: GLYCOPYRROLATE 0.2 MG/ML VIAL ONE (14:14)
[2019-02-20] MEDS ORDERED: PHENYLEPHRINE HCL 10 MG/ML VIAL ONE (14:14)
[2019-02-20] MEDS ORDERED: PHENYLEPHRINE 100MCG/ML 5ML SYR ONE (14:14)
[2019-02-20] MEDS ORDERED: ePHEDrine sulfate 50 MG/ML SYR ONE (14:14)
[2019-02-20] MEDS ORDERED: ESMOLOL HCL INJ 10 MG/ML 10ML VIAL IV ONE (14:14)
[2019-02-20] MEDS ORDERED: KETOROLAC 30 MG/ML VIAL ONE (14:14)
[2019-02-20] MEDS ORDERED: NEOSTIGMINE METHYLSULFATE 1 MG/ML 10ML VIAL ONE (14:14)
--- NOTE | 2019-02-20 15:05 | Communication Note ---
Date of Service: February 20, 2019 The patient was noted by the PACU nurse to have over 300 ml blood in his drain over the last hour. The patient's SBP was in the 100s with HR in the 100s so he was given a 500 ml bolus of LR. SBP improved to the 110s with HR to the 90s. He is otherwise stable and comfortable. Dr. Santiago is aware and assuming care of the patient. She will order a followup CBC and coagulation studies. The PACU nurses are attempting to reach Dr. Carvajal to make him aware.
[2019-02-20 15:17] LABS: Hematocrit (blood only) 28.9 % (42-52); Hemoglobin 9.7 g/dL (14.0-18.0); Mean Corpuscular Hemoglobin 30.2 pg (25-34); Mean Platelet Volume 8.9 fL (7.4-10.4); Platelet Count 136 K/uL (130-400); RDW Coefficient of Variation 13.6 % (11.5-14.5); RDW Standard Deviation 45.2 fL (36.4-46.3); Red Blood Count 3.21 M/uL (4.7-6.1); White Blood Count 8.02 K/uL (4.8-10.8)
[2019-02-20] MEDS ORDERED: SODIUM CHLORIDE 0.9% 250 ML IV PRN (15:19)
--- NOTE | 2019-02-20 15:26 | Anesthesiology Progress Note ---
Date of Service February 20, 2019 Anesthesia Post Procedure Vital Signs Vital Signs: Temp Pulse Pulse Resp BP Pulse Ox 02/20/19 15:05 37.1 C 94 H 10 L 113/66 93 02/20/19 14:55 37.1 C 94 H 9 L 111/63 95 02/20/19 14:45 37.1 C 93 H 16 104/57 L 94 02/20/19 14:35 37.1 C 100 H 16 102/60 94 02/20/19 14:25 36.9 C 101 H 20 106/59 L 94 02/20/19 14:15 36.9 C 107 H 22 120/67 99 02/20/19 14:07 36.9 C 92 H 14 115/69 96 02/20/19 08:48 36.9 C 82 20 132/92 93 Transfer of Care Handoff Completed per policy Notes Mental Status: alert / awake / arousable and participated in evaluation Nausea / Vomiting: adequately controlled Pain: adequately controlled Airway Patency, RR, SpO2: stable & adequate BP & HR: stable & adequate and see Notes below Hydration State: stable & adequate and see Notes below Anesthetic Complications: no major complications apparent, see Notes below and Pt Satisfied with anesthetic care Notes: Received pt from Dr. Sascha Robledo. EBL in OR 1750, outpt PARAM in 1 hr of PACU [id number]. Pt currently asymp, but HR high 90's, NL=mid 80's. Receiving LR bolus for mild hypoTN (100/70's). Sent repeat CBC/coags/fibrinogen. Hgb 9.7. PARAM continues outpt. Spoke with/updated Dr. Carvajal. Site dressing clean. Will plan for continued conservative mgt, however with continued PARAM oupt, age, HTN/HLD/Afib hx will tfx 1 unit pRBC at this time. Pt aware and agreeable. Discussed case with hospitalist for postPACU mgt.
[2019-02-20 16:11] LABS: Mean Corpuscular Hgb Conc 33.6 g/dL (32-36)
[2019-02-20] MEDS ORDERED: SILDENAFIL CITRATE 20 MG TABLET PO PRN (16:47)
[2019-02-20] MEDS ORDERED: LORazepam 0.5 MG TAB PO PRN (16:47)
[2019-02-20] MEDS ORDERED: bisacodyL 10 MG SUPP PR PRN (16:47)
[2019-02-20] MEDS ORDERED: METOCLOPRAMIDE HCL INJ 5 MG/ML 2 ML VIAL IV PRN (16:47)
[2019-02-20] MEDS ORDERED: FAMOTIDINE 20 MG TAB PO PRN (16:47)
[2019-02-20] MEDS ORDERED: ALUMINUM/MAGNESIUM SUSP 30 ML UDC PO PRN (16:47)
[2019-02-20] MEDS ORDERED: ACETAMINOPHEN 1,000 MG/100 ML VIAL IV PRN (16:47)
[2019-02-20] MEDS ORDERED: SOD PHOSPHATE/SOD BIPHOSPHATE ENEMA 132 ML BTL PR PRN (16:47)
[2019-02-20] MEDS ORDERED: NALOXONE HCL 0.4 MG/1 ML VIAL/CARP IV PRN (16:47)
[2019-02-20] MEDS ORDERED: DO NOT ADMINISTER PNEUMOCOCCAL VACCINE PRN (16:47)
[2019-02-20] MEDS ORDERED: ONDANSETRON 4 MG OD TAB PO PRN (16:47)
[2019-02-20] MEDS ORDERED: PROMETHAZINE HCL 12.5 MG in SODIUM CHLORIDE 0.9% 50 ML IV PRN (16:47)
[2019-02-20] MEDS ORDERED: HYDROmorphone INJ 0.5 MG/0.5 ML SYR IV PRN (16:47)
[2019-02-20] MEDS ORDERED: LORazepam 0.5 MG/1 ML VIAL IV PRN (16:47)
[2019-02-20] MEDS ORDERED: ACETAMINOPHEN 500 MG TAB PO PRN (16:47)
[2019-02-20] MEDS ORDERED: DO NOT ADMINISTER FLU VACCINE PRN (16:47)
[2019-02-20 16:55] LABS: INR 1.2 (0.9-1.1); Partial Thromboplastin Time 26.9 Seconds (21.0-31.0); Prothrombin Time 12.4 Seconds (9.0-12.0)
[2019-02-20 16:56] LABS: Fibrinogen 185 mg/dl (184-400)
[2019-02-20] MEDS: LACTATED RINGER'S 1,000 ML IV SCH ×2 (17:35→21:53)
[2019-02-20] MEDS: CEFAZOLIN 2000MG 2,000 MG/15 ML SYR IV SCH (17:36)
[2019-02-20] MEDS: KETOROLAC TROMETHAMINE 15 MG/ML VIAL IV SCH (17:54)
--- NOTE | 2019-02-20 17:55 | Hospitalist Consultation ---
Date of Consultation February 20, 2019 Assessment & Plan (1) Neurogenic claudication due to lumbar spinal stenosis: s/p decompression and fusion with Dr. Carvajal dvt proph, pain control per primary (2) Dyslipidemia: Continue statin (3) HTN (hypertension): continue telmisartan (4) Cardiac murmur: Known murmur: mild mitral valve regurgitation and moderate AV sclerosis on 2017 echo Present on Admission?: Yes (5) Pulmonary hypertension: continue sildenafil daily has moderate obstructive sleep apnea - untreated (6) Acute blood loss anemia: 2100 mls blood loss between surgical EBL and drain - given 1 unit PRBCs in PACU continue to monitor hgb and transfuse as necessary asymptomatic Will check EKG for irregular rhythm on exam History of Present Illness Attending Physician: Michi Carvajal, DO History of Present Illness Mr. Bush feels well post op. He denies any chest pain, palpitations, d izziness, sob, nausea or intolerable pain. Pmhx: history of prostate CA with prostatectomy in 2006, brief a.fib after becoming dehydrated years ago - not anticoagulated, dyslipidemia Social: never smoker, chews 1 can every 2-3 weeks, 5-6 drinks/week, lives alone Family: mother lived to be 96, father had heart problems, son of a heart attack at age 31 Allergies Allergy/AdvReac Type Severity Reaction Status Date / Time ramipril Allergy Mild Swollen Verified 02/20/19 08:44 lips Home Medications Home Medications Medication Instructions Recorded Confirmed Type aspirin 325 mg PO QAM 03/17/18 02/20/19 History atorvastatin [Lipitor] 80 mg PO QPM 03/17/18 02/20/19 History cholecalciferol (vitamin D3) 1,000 unit PO QAM 03/17/18 02/20/19 History [Vitamin D3] cyanocobalamin (vitamin B-12) 2,000 mcg PO QAM cap 12/01/18 02/20/19 History 1,000 mcg capsule telmisartan 80 mg PO QAM 01/30/19 02/20/19 History sildenafil (pulm.hypertension) 20 20 mg PO DAILY PRN tab 02/07/19 02/20/19 History mg tablet oxycodone 5 mg PO Q6H PRN #30 tab 02/20/19 Rx tramadol 50 mg PO Q6H PRN #30 tab 02/20/19 Rx Patient History Medical History Atrial fibrillation Single episode 10-15 YEARS AGO - possibly due to extreme amount of caffeine Cardiac murmur Mild mitral regurgitation and moderate AV sclerosis present on 2017 echo (no stenosis). 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 Beliefs That Will Affect Care: None marital status: / Current Living Situation: Alone current occupational status: retired Other Information That Helps Us Care for You: No Feels Safe at Home: Yes Safety Concerns: Feels Safe At This Time Smoking Status: Never smoker Do You Dip or Chew Tobacco: No (QUIT 5-6 YEARS AGO) ; Second Hand Exposure: No ; Tobacco Cessation Education Requested by Patient: No Hx Alcohol Use: Yes Alcohol type: beer Hx Substance Use: No Review of Systems Review of Systems: All systems reviewed & are unremarkable except as noted in HPI & below Physical Exam Physical Exam: General: no distress Eyes: normal inspection, PERLL Respiratory: chest non tender, clear to auscultation, normal breath sounds, no respiratory distress, no accessory muscle use Cardiac: irregular rate and rhythm, no rub or gallop, 3/6 systolic murmur rusb, no edema, no jvd GI/: active bowel sounds, no abd pain or tenderness, soft, non distended Extremities: normal range of motion, normal strength, non tender Neuro/Psych: alert and oriented x 3, normal mood and affect Skin: normal color, dry Results & Data Vital Signs (Past 12 Hours) Vital Signs Temp Pulse Pulse Resp BP Pulse Ox 02/20/19 17:40 37.3 C 96 H 16 128/61 95 02/20/19 17:06 36.9 C 97 H 18 120/65 93 02/20/19 16:40 37.5 C 104 H 18 109/70 93 02/20/19 16:25 37.0 C 94 H 10 L 111/62 98 02/20/19 16:15 37.0 C 92 H 12 111/64 98 02/20/19 16:05 36.9 C 90 11 L 108/61 97 02/20/19 15:55 36.9 C 97 H 15 106/54 L 95 02/20/19 15:45 36.9 C 97 H 11 L 109/59 L 95 02/20/19 15:35 36.6 C 101 H 14 114/69 94 02/20/19 15:25 37.1 C 95 H 17 93/59 L 95 02/20/19 15:15 37.1 C 99 H 8 L 114/64 93 02/20/19 15:05 37.1 C 94 H 10 L 113/66 93 02/20/19 14:55 37.1 C 94 H 9 L 111/63 95 02/20/19 14:45 37.1 C 93 H 16 104/57 L 94 02/20/19 14:35 37.1 C 100 H 16 102/60 94 02/20/19 14:25 36.9 C 101 H 20 106/59 L 94 02/20/19 14:15 36.9 C 107 H 22 120/67 99 02/20/19 14:07 36.9 C 92 H 14 115/69 96 02/20/19 08:48 36.9 C 82 20 132/92 93 PG Care Time/CCT Total # of Minutes Spent Total Time Spent with Patient: Total time spent is greater than 50% in coordination of care (as documented) at patient's floor/unit and/or counseling patient:
[2019-02-20] MEDS: DOCUSATE SODIUM/SENNA 50/8.6MG TAB PO SCH (21:12)
[2019-02-20] MEDS: ATORVASTATIN 40 MG TAB PO SCH (21:12)
[2019-02-21] MEDS: KETOROLAC TROMETHAMINE 15 MG/ML VIAL IV SCH ×3 (00:51→12:28)
--- NOTE | 2019-02-21 01:28 | Progress Note ---
Date of Service February 21, 2019 Received a page from the patient's nurse that the patient was complaining of acute chest heaviness, shortness of breath, and was noted to be tachycardic. He was also complaining of his belly feeling distended and having excessive gas and belching. On brief chart review, patient underwent a lumbar decompressive procedure joie ier yesterday. He has had some ongoing borderline and low-tachycardia since. EKG yesterday at 1807 noted sinus tachycardia with PACs. Spoke with patient at bedside. He says even in the past few minutes since noting his concerns to the nurse his symptoms have virtually resolved. He says a lot of burping seems to have helped with this. He describes most of his chest pressure being in the sternal notch region which she thinks may have been positional on the way he was lying on the bed. He no longer has any shortness of breath or abdominal discomfort. He overall appears very comfortable on room air. Heart is irregular tachycardia. Lungs are clear. Repeat EKG notes sinus tachycardia with multiple PACs. Plan: - Discussed with patient that it seems like much of his symptoms may be related to some GI gas. His symptoms are virtually resolved at this point. - We discussed two options. Option 1 is to continue to monitor since he is mostly asymptomatic. Option 2 is a more complete work-up for things like ACS or PE with associated lab and CTA testing. Ultimately we opted for option 1 for now. Patient and his at bedside seemed happy with this plan. Nikolai Isbell, PGY3 Overnight call Results & Data Vital Signs (Past 12 Hours) Vital Signs Temp Pulse Pulse Resp BP Pulse Ox 02/20/19 23:00 37 C 105 H 20 105/67 93 02/20/19 20:00 37.1 C 92 H 16 100/59 L 92 02/20/19 18:40 37.4 C 16 96/61 L 93 02/20/19 17:40 37.3 C 96 H 16 128/61 95 02/20/19 17:06 36.9 C 97 H 18 120/65 93 02/20/19 16:40 37.5 C 104 H 18 109/70 93 02/20/19 16:25 37.0 C 94 H 10 L 111/62 98 02/20/19 16:15 37.0 C 92 H 12 111/64 98 02/20/19 16:05 36.9 C 90 11 L 108/61 97 02/20/19 15:55 36.9 C 97 H 15 106/54 L 95 02/20/19 15:45 36.9 C 97 H 11 L 109/59 L 95 02/20/19 15:35 36.6 C 101 H 14 114/69 94 02/20/19 15:25 37.1 C 95 H 17 93/59 L 95 02/20/19 15:15 37.1 C 99 H 8 L 114/64 93 02/20/19 15:05 37.1 C 94 H 10 L 113/66 93 02/20/19 14:55 37.1 C 94 H 9 L 111/63 95 02/20/19 14:45 37.1 C 93 H 16 104/57 L 94 02/20/19 14:35 37.1 C 100 H 16 102/60 94 02/20/19 14:25 36.9 C 101 H 20 106/59 L 94 02/20/19 14:15 36.9 C 107 H 22 120/67 99 02/20/19 14:07 36.9 C 92 H 14 115/69 96
[2019-02-21] MEDS: CEFAZOLIN 2000MG 2,000 MG/15 ML SYR IV SCH (02:50)
[2019-02-21 05:18] LABS: Basophils # (auto) 0.01 K/uL (0-0.2); Basophils % (auto) 0.1 %; Hematocrit (blood only) 27.1 % (42-52); Hemoglobin 9.1 g/dL (14.0-18.0); Immature Granulocytes # (auto) 0.02 K/uL (0.00-0.02); Immature Granulocytes % (auto) 0.2 %; Lymphocytes # (auto) 1.33 K/uL (1.2-3.4); Lymphocytes % (auto) 12.7 %; Mean Corpuscular Hemoglobin 29.7 pg (25-34); Mean Corpuscular Hgb Conc 33.6 g/dL (32-36); Mean Corpuscular Volume 88.6 fL (80-100); Mean Platelet Volume 9.1 fL (7.4-10.4); Monocytes % (auto) 12.4 %; Neutrophils # (auto) 7.79 K/uL (1.4-6.5); Neutrophils % (auto) 74.6 %; Platelet Count 140 K/uL (130-400); RDW Coefficient of Variation 14.6 % (11.5-14.5); RDW Standard Deviation 47.5 fL (36.4-46.3); Red Blood Count 3.06 M/uL (4.7-6.1); White Blood Count 10.45 K/uL (4.8-10.8)
[2019-02-21 05:39] LABS: BUN Creatinine Ratio 15.1 (10-20); Calcium 7.8 mg/dl (8.5-10.1); Creatinine Clr Calc Pharmacy 74.7 ml/min; Est GFR (African American) 72.8; Est GFR (Non-African American) 62.8; Potassium 4.1 mmol/L (3.5-5.1)
[2019-02-21] MEDS: POLYETHYLENE (MIRALAX) 17 GM PACK PO SCH ×4 (06:25→23:34)
[2019-02-21] MEDS: ASPIRIN 325 MG ECTAB PO SCH (08:31)
[2019-02-21] MEDS: CHOLECALCIFEROL 1,000 UNITS TAB PO SCH (08:31)
[2019-02-21] MEDS: CYANOCOBALAMIN 500 MCG TABLET (VITAMIN B-12) PO SCH (08:31)
[2019-02-21] MEDS ORDERED: TELMISARTAN 40 MG TAB PO SCH (09:00)
[2019-02-21] MEDS: OXYCODONE HCL IR 5 MG TAB (IMMEDIATE RELEASE) PO PRN ×2 (09:51→20:10)
--- NOTE | 2019-02-21 10:13 | Orthopedic Progress Note ---
Date of Service February 21, 2019 Assessment & Plan (1) Neurogenic claudication due to lumbar spinal stenosis: This time continue physical therapy monitor his PARAM output and his H&H. Hopefully discharge home later half this weekend. Present on Admission?: Yes Subjective Patient is complaining of back pain only leg symptoms markedly improved. Physical Exam Physical Exam: Patient is in the chair at the bedside. He is comfortable. Is good strength testing. Results & Data Vital Signs (Past 12 Hours) Vital Signs Temp Pulse Resp BP Pulse Ox 02/21/19 07:10 37 C 96 H 20 98/56 L 92 02/21/19 02:40 37.1 C 96 H 18 103/57 L 91 02/20/19 23:00 37 C 105 H 20 105/67 93
--- NOTE | 2019-02-21 14:05 | Hospitalist Progress Note ---
Date of Service February 21, 2019 Assessment & Plan (1) Neurogenic claudication due to lumbar spinal stenosis: s/p decompression and fusion with Dr. Carvajal dvt proph, pain control per primary (2) Dyslipidemia: Continue statin (3) HTN (hypertension): Hold telmistartan - patient running slightly hypotensive, has been asymptomatic but will hold blood pressure medications until discharge unless he becomes hypertensive. Currently patient is positive 5L so will hold off on adding further IVF but could consider if patient becomes symptomatic or pressures continue to drop (4) Cardiac murmur: Known murmur: mild mitral valve regurgitation and moderate AV sclerosis on 2017 echo (5) Pulmonary hypertension: continue sildenafil daily has moderate obstructive sleep apnea - untreated (6) Acute blood loss anemia: 2100 mls blood loss between surgical EBL and drain - given 1 unit PRBCs in PACU Hgb has been stable overnight asymptomatic Medicine will sign off at this time. Please call with any questions or concerns Supervising Physician Co-Signing Physician Notes I supervised Buffy Ridley NP on this patient's care. I examined the patient today independently of her. I discussed the plan of care with her with the plan being as written in her note except for any following changes/exceptions: None. He is feeling well. The chest pain from early in the morning could also be MSK from lying on his chest during the surgery. Subjective Mr. Bush feels well, no further upper chest discomfort or belching as he had over the night. He did well participating in physical therapy. His back pain is minimal. ROS Constitutional: no chills, aches, sweats or fever Respiratory: no sob,cough, sputum, or wheezing Cardiac: no chest pain, palpitations, edema, orthopnea or lightheadedness GI: no abdominal pain, nausea, vomiting, diarrhea or constipation : no dysuria or hesitancy Extremities: no joint pain or weakness Skin: no rash All other systems reviewed and negative Physical Exam Physical Exam: General: no distress Eyes: normal inspection, PERLL Respiratory: chest non tender, clear to auscultation, normal breath sounds, no respiratory distress, no accessory muscle use Cardiac: regular rate and rhythm, no rub or gallop, no murmur, no edema, no jvd GI/: active bowel sounds, no abd pain or tenderness, soft, non distended Extremities: normal range of motion, normal strength, non tender Neuro/Psych: alert and oriented x 3, normal mood and affect Skin: normal color, dry Results & Data Vital Signs (Past 12 Hours) Vital Signs Temp Pulse Resp BP Pulse Ox 02/21/19 10:36 36.9 C 95 H 17 96/58 L 93 02/21/19 07:10 37 C 96 H 20 98/56 L 92 02/21/19 02:40 37.1 C 96 H 18 103/57 L 91 PG Care Time/CCT Total # of Minutes Spent Total Time Spent with Patient: Total time spent is greater than 50% in coordination of care (as documented) at patient's floor/unit and/or counseling patient:
[2019-02-21] MEDS: ATORVASTATIN 40 MG TAB PO SCH (20:10)
[2019-02-21] MEDS: DOCUSATE SODIUM/SENNA 50/8.6MG TAB PO SCH (20:10)
[2019-02-21] MEDS: TRAMADOL HCL 50 MG TABLET PO PRN (23:34)
[2019-02-22] MEDS: OXYCODONE HCL IR 5 MG TAB (IMMEDIATE RELEASE) PO PRN ×6 (01:46→23:40)
[2019-02-22] MEDS: POLYETHYLENE (MIRALAX) 17 GM PACK PO SCH ×4 (06:27→23:40)
[2019-02-22] MEDS: TRAMADOL HCL 50 MG TABLET PO PRN ×3 (08:16→20:49)
[2019-02-22] MEDS: CYANOCOBALAMIN 500 MCG TABLET (VITAMIN B-12) PO SCH (08:16)
[2019-02-22] MEDS: CHOLECALCIFEROL 1,000 UNITS TAB PO SCH (08:16)
[2019-02-22] MEDS: ASPIRIN 325 MG ECTAB PO SCH (08:16)
--- NOTE | 2019-02-22 10:09 | Orthopedic Progress Note ---
Date of Service February 22, 2019 Assessment & Plan (1) Neurogenic claudication due to lumbar spinal stenosis: At this time we will continue physical therapy monitor PARAM output hopefully discharge home tomorrow pending his PARAM production. Present on Admission?: Yes Subjective Patient's back pain is controlled leg symptoms improved. Physical Exam Physical Exam: Patient is in the chair at the bedside appears comfortable. Is good strength testing. Results & Data Vital Signs (Past 12 Hours) Vital Signs Temp Pulse Resp BP BP Pulse Ox 02/22/19 07:46 37.1 C 84 16 107/65 92 02/21/19 23:20 37.2 C 92 H 16 111/67 93/56 L 94
[2019-02-22] MEDS: MAGNESIUM HYDROXIDE SUSP 30 ML UDC PO PRN (16:33)
[2019-02-22] MEDS: DOCUSATE SODIUM/SENNA 50/8.6MG TAB PO SCH (18:28)
[2019-02-22] MEDS: ATORVASTATIN 40 MG TAB PO SCH (20:49)
[2019-02-23] MEDS: POLYETHYLENE (MIRALAX) 17 GM PACK PO SCH (05:35)
[2019-02-23] MEDS: OXYCODONE HCL IR 5 MG TAB (IMMEDIATE RELEASE) PO PRN ×4 (06:15→18:41)
[2019-02-23] MEDS: CHOLECALCIFEROL 1,000 UNITS TAB PO SCH (08:10)
[2019-02-23] MEDS: MAGNESIUM HYDROXIDE SUSP 30 ML UDC PO PRN (08:10)
[2019-02-23] MEDS: TRAMADOL HCL 50 MG TABLET PO PRN ×2 (08:10→15:28)
[2019-02-23] MEDS: ASPIRIN 325 MG ECTAB PO SCH (08:10)
[2019-02-23] MEDS: CYANOCOBALAMIN 500 MCG TABLET (VITAMIN B-12) PO SCH (08:10)
--- NOTE | 2019-02-23 10:00 | Orthopedic Progress Note ---
Date of Service February 23, 2019 Assessment & Plan (1) Neurogenic claudication due to lumbar spinal stenosis: This time we will continue to monitor his PARAM output advance his bowel regimen anticipate discharge home tomorrow. Present on Admission?: Yes Subjective Patient's back pain is controlled leg symptoms improved. Still no bowel movement as of this time. Physical Exam Physical Exam: On exam he is in the chair at the bedside. He is comfortable. Skin strength testing. Results & Data Vital Signs (Past 12 Hours) Vital Signs Temp Pulse Resp BP Pulse Ox 02/23/19 07:18 37.1 C 92 H 18 111/65 93 02/22/19 23:28 37.6 C H 98 H 16 121/70 90
[2019-02-23] MEDS: ATORVASTATIN 40 MG TAB PO SCH (21:04)
[2019-02-23] MEDS: DOCUSATE SODIUM/SENNA 50/8.6MG TAB PO SCH (21:04)
[2019-02-24] MEDS: OXYCODONE HCL IR 5 MG TAB (IMMEDIATE RELEASE) PO PRN ×2 (00:08→05:42)
[2019-02-24] MEDS: ASPIRIN 325 MG ECTAB PO SCH (08:30)
[2019-02-24] MEDS: CYANOCOBALAMIN 500 MCG TABLET (VITAMIN B-12) PO SCH (08:30)
[2019-02-24] MEDS: CHOLECALCIFEROL 1,000 UNITS TAB PO SCH (08:30)
--- NOTE | 2019-02-24 09:48 | Discharge Summary ---
Date of Service February 24, 2019 Admission HPI Per Admitting Provider This is a 68-year-old male who presents with back and bilateral leg pain. After failing extensive course of nonoperative care is here for surgical invention. Principal Diagnosis Lumbar spinal stenosis with neurogenic claudication Discharge Data Allergies Allergy/AdvReac Type Severity Reaction Status Date / Time ramipril Allergy Mild Swollen Verified 02/20/19 08:44 lips Consultations 02/20/19 16:47 Consult Case Management - Discharge Planning Routine Consult Hospitalist Routine Procedures Performed Operation Date: 02/20/19 09:55 Actual Procedures p L2-S1 Decompression and Fusion, use of Infuse, Spinal Cord Monitoring(Not Applicable) - Michi Carvajal DO Ordered Studies 02/20/19 09:55 FL fluoroscopy <1hr Routine FL lumbar spine 2-3V Routine Hospital Course (1) Neurogenic claudication due to lumbar spinal stenosis: Patient went lumbar decompression fusion tolerated so was taken to orthopedic for postoperative. Postop day 1 he was up and ambulating with therapy progressed appropriately throughout his hospital stay PARAM drain decreased steadily decreasing bowels working well his final day and subsequent discharge home neurologically intact discharge orders instructions from the chart for further review. Total Time Total Time Spent Total Time Spent (In Minutes): 20 minutes Discharge Plan Discharge Items Patient Disposition: Home - Self-Care Reason For Visit: Low Back Pain Discharge Diagnosis: Lumbar spinal stenosis with neurogenic claudication Activity: Per Instructions section Non-emergency contact: Primary Care Provider Call non-emergency contact if: you have any medication questions Follow-up/Referrals: Elian Vazquez DO [Primary Care Provider] - Diet: Regular Addtl Attending Provider Instructions: ACTIVITY RECOMMENDATIONS: SELF CARE INSTRUCTIONS AFTER THORACIC/LUMBAR FUSIONS 1. You may walk to your tolerance. It is good exercise for your legs and back. Expect some back and intermittent leg aches and pains. 2. You may perform "counter-top" level activities (make a sandwich, nadir with a project, etc.). 3. No bending or lifting of more than 10 pounds or back twisting of any nature (roll like a log when turning in bed). 4. You may ride in a car for 20-30 minutes at a time. No driving until after your first visit with your doctor. 5. Frequent changes of position and restricting sitting to 30 minutes at a time will help limit the amount of back spasms and stiffness you may experience. 6. You may discontinue the use of ambulatory aids (cane, crutches, etc.) once your strength and confidence allow. 7. You may aluminum pourer the shower and let water strike your incision when you arrive home at least once daily. Do not take a tub bath, sit in a hot tub or go into a swimming pool until after your first recheck in the office. SPECIAL CARE INSTRUCTIONS: VERY IMPORTANT TO READ AND REVIEW A. Your surgical incision has been closed with a cosmetic suture under the skin that will dissolve in about 6 weeks. In 14 days, you can use a pair of clean scissors and cut the suture that is left outside of the skin at the ends of your incision. 1. The small skin tapes can be removed 7 days after surgery if they have not fallen off by that point. 2. You may keep the wound open to air as much as possible to promote healing after post-op day number 5 unless told otherwise by your doctor. 3. If you think the wound looks like it is becoming infected (redness or worsening drainage) and/or you are experiencing fever, chill or worsening back pain and muscle spasms, contact the office so that we may evaluate you as soon as possible. B. Complications are uncommon, but please contact us if you have any signs or symptoms of: 1. wound infection (fever higher than 102.5 degrees F, redness, separation of wound, drainage, or increasing pain from the incision) 2. blood clots in legs (pain, swelling, redness and warmth in legs) 3. urinary tract infection (fever higher than 102.5 degrees F, burning upon urination or increased frequency of urination) 4. nerve problems (inability to walk on your toes or heels, numbness, loss of bowel or bladder control) 5. any other symptoms that concern you C. Please call the office at if you have any concerns or questions about your operation or recovery. D. No smoking! Smoking drastically decreases the chance of a solid fusion. E. Do not take any anti-inflammatory medications (Indocin, Advil, Motrin, Aspirin, Naprosyn, etc.) as these may inhibit the chance of a solid fusion. Tylenol is okay to take for pain. MANAGING PAIN AFTER SPINAL SURGERY 1. Narcotic medication is intended for short-term use and will be provided for surgical pain. Surgical pain usually lasts for a period of 4-6 weeks. Narcotic medication includes Percocet, Vicodin, Darvocet, Tylenol #3 or Lortab. 2. Longer-term pain is more appropriately treated with non-narcotic medication such as Tylenol ES. 3. Muscle spasm is not appropriately treated with narcotics. Muscle relaxers such as Soma, Flexeril or Skelaxin can be used along with Tylenol ES. 4. Remember that we all live with some "aches and pains". This is not unusual or uncommon after an injury or as we get older. a. Back pain is expected and may include muscle spasms for 4 to 6 weeks after surgery. The pain should gradually improve. If the pain worsens for no apparent reason, please contact the office. b. Intermittent leg pain may also be experienced and should not be concerned about unless it worsens for no apparent reason. If so, please contact the office. 5. We will provide appropriate medication within the normal guidelines of their prescribed use. We will also be very cautious and aware of potential abuse and extended duration of patients' medication needs. a. Pain medications are for your comfort and to assist with sleep and rest so that the tissue can heal. They are not provided in order to return to normal activity and should not be used through the day. To do so or worsening pain at night can result from ongoing tissue damage and development of tolerance to the prescribed medicine. 6. Please allow 2-3 days to process refills. Prescriptions will not be mailed but must be picked up at the office. FOLLOW UP VISIT: Keep your scheduled follow-up appointment. Any questions, please call the office at . Pending Studies at Discharge: No Stand-Alone Forms: [facility], Smoking Cessation Medications and DC Order Prescriptions: New tramadol 50 mg tablet 50 mg PO Q6H PRN (Reason: pain, moderate) Qty: 30 RF: 0 oxycodone 5 mg tablet 5 mg PO Q6H PRN (Reason: pain, severe) Qty: 30 RF: 0 Continued sildenafil (pulm.hypertension) [Revatio] 20 mg tablet 20 mg PO DAILY PRN (Reason: Other) RF: 0 telmisartan 80 mg tablet 80 mg PO QAM RF: 0 atorvastatin [Lipitor] 80 mg Tablet 80 mg PO QPM RF: 0 aspirin 325 mg Tablet,Delayed Release (Dr/Ec) 325 mg PO QAM RF: 0 cholecalciferol (vitamin D3) [Vitamin D3] 1,000 unit Capsule 1,000 unit PO QAM RF: 0 cyanocobalamin (vitamin B-12) 1,000 mcg capsule 2,000 mcg PO QAM RF: 0 Discharge Orders: Discharge Order (Routine); Ordered 02/24/19 Ordered By: Michi Carvajal Admission Data Admit Date/Time: 02/20/19 14:14 Attending Provider: Michi Carvajal Admit Provider: Michi Carvajal Primary Care Provider: Elian Vazquez Other Providers: Troy Costa
== END 2019-02-24 13:20 | disposition home or self-care (01) | DRG 460 ==
LOC: ASU 07:57 → 3E 14:14

== ENCOUNTER 2020-08-23 16:48 | Inpatient (IN) ==
[2020-08-23] MEDS ORDERED: dilTIAZem HCl 5 MG/ML 5 ML VIAL IV STA (17:32)
[2020-08-23] MEDS ORDERED: SODIUM CHLORIDE 0.9% 1000ML 1,000 ML IV ONE (17:32)
--- NOTE | 2020-08-23 17:39 | XRay Report ---
XR chest 1V portable HISTORY: weakness COMPARISON: Chest 05/29/2006. FINDINGS: No pneumothorax. No pleural effusions. The heart remains mildly enlarged. There is a mildly tortuous thoracic aorta. There are low lung findings with mild elevation of the right hemidiaphragm. A few right basilar linear densities favor subsegmental atelectasis. Punctate calcified granuloma wi thin the left upper lobe. No new focal lung consolidations to suggest pneumonia. No evidence for hortencia a. IMPRESSION: No significant change compared to the prior study. No acute process. ACT 112: Negative or not required by law. Electronically signed by: Deejay Hernandez M.D. 08/23/2020 5:38 PM
[2020-08-23 17:40] LABS: Basophils # (auto) 0.03 K/uL (0-0.2); Basophils % (auto) 0.3 %; Eosinophils # (auto) 0.14 K/uL (0-0.5); Eosinophils % (auto) 1.6 %; Hematocrit (blood only) 45.1 % (42-52); Hemoglobin 15.1 g/dL (14.0-18.0); Immature Granulocytes # (auto) 0.02 K/uL (0.00-0.02); Immature Granulocytes % (auto) 0.2 %; Lymphocytes # (auto) 2.85 K/uL (1.2-3.4); Lymphocytes % (auto) 32.7 %; Mean Corpuscular Hemoglobin 30.8 pg (25-34); Mean Corpuscular Hgb Conc 33.5 g/dL (32-36); Mean Platelet Volume 9.8 fL (7.4-10.4); Monocytes # (auto) 1.17 K/uL (0.11-0.59); Monocytes % (auto) 13.4 %; Neutrophils % (auto) 51.8 %; Platelet Count 215 K/uL (130-400); RDW Coefficient of Variation 13.5 % (11.5-14.5); RDW Standard Deviation 45.9 fL (36.4-46.3); White Blood Count 8.71 K/uL (4.8-10.8)
--- NOTE | 2020-08-23 17:48 | Emergency Department Note ---
Impression & Plan Atrial fibrillation with rapid ventricular response, Acute non-ST elevation myocardial infarction (NSTEMI), Abnormal EKG, Palpitation ED Provider Note NAME: SHANTHI GOLDEN AGE: 70 SEX: M : 1950 ARRIVES VIA: Walk-In INFORMANT: Patient, ED PROVIDER(S): Elie Dias DO CHIEF COMPLAINT: Palpitations HPI: The patient is a 70-year-old male who presented to the emergency department for an evaluation of difficulty breathing and palpitations. The patient states he was fine last week when he saw his family doctor but started having difficulty breathing dyspnea on exertion and noted palpitations over the course the last few days. The patient states that he was helping a friend move and he realized he was having significant difficulty breathing as well as exertional dyspnea. He denies having any fevers. He has had no recent trauma. He has noticed some swelling in his lower extremities. He denies having any headaches. He denies having any current chest pain. He states his symptoms are significantly improved with rest. He states his symptoms are worsened with exertion. He was seen at the walk-in clinic and sent directly to the emergency department because of an abnormal EKG and rapid atrial fibrillation. ROS: See above HPI for pertinent positives & negatives. A total of 10 systems reviewed and were otherwise negative. PAST MEDICAL HISTORY: See Below PAST SURGICAL HISTORY: See Below FAMILY HISTORY: See Below SOCIAL HISTORY: See Below HOME MEDICATIONS: See Below ALLERGIES: See Below VITALS: See Below PHYSICAL EXAMINATION: GENERAL: Patient is awake alert in no acute distress patient is resting comfortably and showing no signs of anxiety EYES: The conjunctivae are clear. The pupils are round and reactive. EARS, NOSE, MOUTH AND THROAT: The nose is without any evidence of any deformity. Mucous membranes are moist. Tongue is midline. NECK: The neck is nontender and supple. RESPIRATORY: Normal respiratory effort is noted there is no evidence of wheezing rhonchi or rales CARDIOVASCULAR: Tachycardic and irregular heart sounds were noted to auscultation. There is no definite murmur. GASTROINTESTINAL: The abdomen is soft. Abdomen is nontender. MUSCULOSKELETAL/EXTREMITIES: There is no evidence of gross deformity full range of motion is noted in the hips and shoulders. SKIN: Skin was warm and dry. Trace pedal edema was noted bilaterally. NEUROLOGIC: Patient is awake alert and oriented x3 strength is symmetric patellar reflexes are 2+ bilaterally MEDICAL DECISION MAKING: The patient is a 70-year-old male who presented to the emergency department for an evaluation of palpitations. The patient has a history of atrial fibrillation in the past but he does not currently take medications for atrial fibrillation including blood thinners. The patient was found to be in rapid atrial fibrillation. Initially he was treated with a Cardizem bolus. He was then treated with IV fluids. He was reevaluated multiple times. He was found to have an abnormal troponin as well as ischemia on his EKG. For this reason he w as started on a heparin drip as well as a Cardizem drip. He was reevaluated multiple times. I discussed the patient's laboratory and radiographic studies with him including his elevated troponin. The [facility] hospitalist group was made aware of the patient. They will evaluate the patient in the emergency department for further management and disposition. Via Triage Nursing notes reviewed. Prior medical records reviewed Vital Signs: reviewed and remarkable for tachycardia and hypotension. Differential diagnosis: Premature contractions, electrolyte abnormality, cardiac dysrhythmia, thyroid dysfunction, pulmonary embolism, infection, gastrointestinal, as well as other pathologies. ER treatment provided: See below Diagnostics interpreted by me: ECG: EKG was obtained in the emergency department. My interpretation is atrial fibrillation with rapid ventricular response. PVCs were noted. Diffuse ST segment depressions were also noted in the anterior and low lateral leads. This was compared to a tracing from February [id number]. Atrial fibrillation was present on the previous EKG however the ST segment abnormalities and the rapid rate are new compared to the earlier tracing. Cardiac Monitoring: An order was placed for continuous cardiac monitoring. The monitor shows a rate of 150 bpm with atrial fibrillation rhythm. Laboratory studies: As stated above and show below. Imaging studies: See below Consultation(s): Dr. Maxwell with the [facility] hospitalist group was notified about the patient. ED COURSE: Procedures: none PDMP:reviewed and no issues Critical Care: I have personally spent greater than 60 minutes of critical care time in the direct management of this patient. This includes bedside care, interpretation of diagnostic studies, and testing, discussion with consultants, patient, and family members, and other required patient management activities. This 60 minutes is in excess of all separately billable procedures. Past Med/Surg History Medical History Atrial fibrillation Single episode 10-15 YEARS AGO Cardiac murmur Moderate mitral regurgitation and moderate AV sclerosis present on 2019 echo mild aortic stenosis Carotid artery plaque Chronic osteoarthritis Dyslipidemia Erectile dysfunction History of gout History of prostate cancer (~2006) s/p prostatectomy, Followed by [facility] History of skin cancer BACK, RT ELBOW (REMOVED) HTN (hypertension) Internal inguinal hernia Mild aortic stenosis Mild sleep apnea PRESCRIBED CPAP BUT NOT CURRENTLY USING BC OF INSURANCE ISSUES Neurogenic claudication due to lumbar spinal stenosis Peripheral neuropathy Pulmonary hypertension Solitary thyroid nodule Neg FNA 2014 Vitamin D deficiency Surgical History H/O prostatectomy H/O Spinal surgery L2-S1 Decompression and Fusion, use of Infuse, Spinal Cord Monitoring(Not Applicable) - Michi Carvajal DO History of carpal tunnel release History of cataract surgery History of colonoscopy 07/2017 colon polyp Repeat 5 yrs History of tooth extraction Status post biopsy of thyroid gland Family History Father Heart failure Myocardial infarction Brother Heart failure Myocardial infarction Unknown Hypertension Son Myocardial infarction Denies family history of Ovarian cancer Prostate cancer Breast cancer Colorectal cancer Social History Smoking Status: Never smoker Second Hand Exposure: No; Hx Alcohol Use: Yes Alcohol type: beer Alcohol Intake Frequency: 2-3 x/Week Hx Substance Use: No Preferred Language: Bahraini Communication Ability: Effective Visual Impairment: Limited Hearing Ability: Normal 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 Beliefs That Will Affect Care: None marital status: / Current Living Situation: Alone current occupational status: retired How many Children do You have: 2 Feels Safe at Home: Yes Childhood Exposure to Second-Hand Smoke: Yes caffeine: Yes Dental Care, Regularly: Yes Physical Activity Frequency: Does not Exercise Seatbelt Use: always Sunscreen Use: No Assistive Devices: Brace/Splint/Immobilizer, Glasses and Walker Allergies Allergies Allergy/AdvReac Type Severity Reaction Status Date / Time ramipril Allergy Mild Swollen Verified 08/23/20 18:57 lips Home Meds Home Medications Medication Instructions Recorded Confirmed aspirin 325 mg PO QAM 03/17/18 08/23/20 cholecalciferol (vitamin D3) 1,000 unit PO QAM 03/17/18 08/23/20 [Vitamin D3] cyanocobalamin (vitamin B-12) 2,000 mcg PO QAM cap 12/01/18 08/23/20 1,000 mcg capsule Previous Rx's Medication Instructions Recorded atorvastatin 80 mg tablet 80 mg PO QPM #90 tab 08/08/19 tadalafil 20 mg tablet 20 mg PO DAILY PRN #30 tab 08/19/19 tadalafil 5 mg tablet 5 mg PO DAILY #30 tab 01/05/20 Results & Data (ED) Vital Signs Vital Signs - 24 hr 08/23/20 16:56 08/23/20 17:22 08/23/20 17:31 Temperature 36.3 C L Temperature Source Oral Pulse Rate 103 H 174 H Pulse Rate from SpO2 Sensor 133 H Pulse Rhythm Regular Pulse Strength Normal Respiratory Rate 20 18 Respiratory Effort / Characteristics Non-Labored Spontaneous Respiratory Depth Normal Respiratory Pattern Regular Blood Pressure 107/71 123/83 Blood Pressure Mean 83 96 Pulse Oximetry 96 94 93 Oxygen Delivery Method Room Air Room Air Sepsis Recent Fever Within 48 Hours No Sepsis New/Unexplained Change in Mental Status N/A Sepsis Action Taken by Nursing No Action Required 08/23/20 18:00 08/23/20 18:31 Temperature Temperature Source Pulse Rate 117 H 114 H Pulse Rate from SpO2 Sensor 87 92 H Pulse Rhythm Pulse Strength Respiratory Rate 20 22 Respiratory Effort / Characteristics Respiratory Depth Respiratory Pattern Blood Pressure 105/70 91/71 L Blood Pressure Mean 81 77 Pulse Oximetry 94 94 Oxygen Delivery Method Sepsis Recent Fever Within 48 Hours Sepsis New/Unexplained Change in Mental Status Sepsis Action Taken by Long Term Medications Current Medication List: was personally reviewed by me Laboratory Data Attestation: I reviewed the patient's lab results. Result diagrams: 08/23/20 17:18 08/23/20 17:18 Lab Results 08/23/20 08/23/20 08/23/20 Range/Units 17:18 17:18 17:18 WBC 8.71 (4.8-10.8) K/uL RBC 4.90 (4.7-6.1) M/uL Hgb 15.1 (14.0-18.0) g/dL Hct 45.1 (42-52) % MCV 92.0 (80-100) fL MCH 30.8 (25-34) pg MCHC 33.5 (32-36) g/dL RDW Std Deviation 45.9 (36.4-46.3) fL RDW Coeff of Bob 13.5 (11.5-14.5) % Plt Count 215 (130-400) K/uL MPV 9.8 (7.4-10.4) fL Immature Gran % (Auto) 0.2 % Neut % (Auto) 51.8 % Lymph % (Auto) 32.7 % Young % (Auto) 13.4 % Eos % (Auto) 1.6 % Baso % (Auto) 0.3 % Neut # (Auto) 4.50 (1.4-6.5) K/uL Lymph # (Auto) 2.85 (1.2-3.4) K/uL Young # (Auto) 1.17 H (0.11-0.59) K/uL Eos # (Auto) 0.14 (0-0.5) K/uL Baso # (Auto) 0.03 (0-0.2) K/uL Immature Gran # (Auto) 0.02 (0.00-0.02) K/uL PT 10.7 (9.0-12.0) Seconds INR 1.1 (0.9-1.1) APTT 24.6 (21.0-31.0) Seconds PTT Ratio 0.9 Sodium 140 (136-145) mmol/L Potassium 3.7 (3.5-5.1) mmol/L Chloride 107 (98-107) mmol/L Carbon Dioxide 27 (21-32) mmol/L Anion Gap 6.0 (3-11) BUN 12 (7-18) mg/dl Creatinine 1.03 (0.6-1.4) mg/dl Est Cr Clr Drug Dosing 79.0 ml/min Est GFR ( Amer) 83.7 ml/min Est GFR (Non-Af Amer) 72.2 ml/min BUN/Creatinine Ratio 11.7 (10-20) Glucose 83 (70-99) mg/dl Calcium 9.3 (8.5-10.1) mg/dl Magnesium 2.0 (1.8-2.4) mg/dl Total Bilirubin 1.2 H (0.2-1) mg/dl AST 33 (15-37) U/L ALT 42 (12-78) U/L Alkaline Phosphatase 68 (45-117) U/L Troponin I 1.230 H* (0-0.045) ng/ml Total Protein 7.2 (6.4-8.2) gm/dl Albumin 3.6 (3.4-5.0) gm/dl Globulin 3.6 (2.5-4.0) gm/dl Albumin/Globulin Ratio 1.0 (0.9-2) TSH 3.930 (0.300-4.500) uIu/ml COVID-19 Eval Order SARS-CoV-2 (PCR) (Negative) 08/23/20 08/23/20 Range/Units 17:55 17:55 WBC (4.8-10.8) K/uL RBC (4.7-6.1) M/uL Hgb (14.0-18.0) g/dL Hct (42-52) % MCV (80-100) fL MCH (25-34) pg MCHC (32-36) g/dL RDW Std Deviation (36.4-46.3) fL RDW Coeff of Bob (11.5-14.5) % Plt Count (130-400) K/uL MPV (7.4-10.4) fL Immature Gran % (Auto) % Neut % (Auto) % Lymph % (Auto) % Young % (Auto) % Eos % (Auto) % Baso % (Auto) % Neut # (Auto) (1.4-6.5) K/uL Lymph # (Auto) (1.2-3.4) K/uL Young # (Auto) (0.11-0.59) K/uL Eos # (Auto) (0-0.5) K/uL Baso # (Auto) (0-0.2) K/uL Immature Gran # (Auto) (0.00-0.02) K/uL PT (9.0-12.0) Seconds INR (0.9-1.1) APTT (21.0-31.0) Seconds PTT Ratio Sodium (136-145) mmol/L Potassium (3.5-5.1) mmol/L Chloride (98-107) mmol/L Carbon Dioxide (21-32) mmol/L Anion Gap (3-11) BUN (7-18) mg/dl Creatinine (0.6-1.4) mg/dl Est Cr Clr Drug Dosing ml/min Est GFR ( Amer) ml/min Est GFR (Non-Af Amer) ml/min BUN/Creatinine Ratio (10-20) Glucose (70-99) mg/dl Calcium (8.5-10.1) mg/dl Magnesium (1.8-2.4) mg/dl Total Bilirubin (0.2-1) mg/dl AST (15-37) U/L ALT (12-78) U/L Alkaline Phosphatase (45-117) U/L Troponin I (0-0.045) ng/ml Total Protein (6.4-8.2) gm/dl Albumin (3.4-5.0) gm/dl Globulin (2.5-4.0) gm/dl Albumin/Globulin Ratio (0.9-2) TSH (0.300-4.500) uIu/ml COVID-19 Eval Order Covid19 at [facility] SARS-CoV-2 (PCR) NEGATIVE (Negative) Administered Medications Discontinued Medications Diltiazem HCl (Diltiazem Hcl 5 Mg/Ml 5 Ml Vial) 20 mg IV NOW STA Stop: 08/23/20 17:33 Last Admin: 08/23/20 17:50 Dose: 20 mg Documented by: [id number] Cosigned by: [id number] Sodium Chloride (Nss 1000ml) 1,000 mls @ 999 mls/hr IV .Q1H1M ONE Stop: 08/23/20 18:32 Last Admin: 08/23/20 17:50 Dose: 999 mls/hr Documented by: [id number] Imaging Data Radiologist's Impression: Chest X-Ray 08/23/20 17:15 XR chest 1V portable HISTORY: weakness COMPARISON: Chest 05/29/2006. FINDINGS: No pneumothorax. No pleural effusions. The heart remains mildly enlarged. There is a mildly tortuous thoracic aorta. There are low lung findings with mild elevation of the right hemidiaphragm. A few right basilar linear densities favor subsegmental atelectasis. Punctate calcified granuloma within the left upper lobe. No new focal lung consolidations to suggest pneumonia. No evidence for edema. IMPRESSION: No significant change compared to the prior study. No acute process. ACT 112: Negative or not required by law. Electronically signed by: Deejay Hernandez M.D. 08/23/2020 5:38 PM Discharge Plan Visit Data Chief Complaint: Cardiac Assessment Stated Complaint: AFIB, TROUBLE BREATHING ED Provider: Eile Dias Discharge Problem: Atrial fibrillation with rapid ventricular response, Acute non-ST elevation myocardial infarction (NSTEMI), Abnormal EKG, Palpitation Patient Disposition: Being Evaluated by Hospitalist Condition: Good Forms Stand Alone Forms: [employer] Prescriptions Prescriptions: No Action atorvastatin [Lipitor] 80 mg tablet 80 mg PO QPM Qty: 90 RF: 3 aspirin 325 mg Tablet,Delayed Release (Dr/Ec) 325 mg PO QAM RF: 0 cholecalciferol (vitamin D3) [Vitamin D3] 1,000 unit Capsule 1,000 unit PO QAM RF: 0 cyanocobalamin (vitamin B-12) 1,000 mcg capsule 2,000 mcg PO QAM RF: 0 Referrals Referrals: Elian Vazquez, [Primary Care Provider] -
[2020-08-23 17:50] LABS: INR 1.1 (0.9-1.1); Partial Thromboplastin Ratio 0.9; Partial Thromboplastin Time 24.6 Seconds (21.0-31.0); Prothrombin Time 10.7 Seconds (9.0-12.0)
[2020-08-23 17:56] LABS: Albumin Level 3.6 gm/dl (3.4-5.0); BUN Creatinine Ratio 11.7 (10-20); Calcium 9.3 mg/dl (8.5-10.1); Est GFR (African American) 83.7 ml/min; Est GFR (Non-African American) 72.2 ml/min; Potassium 3.7 mmol/L (3.5-5.1)
[2020-08-23 18:20] LABS: Bilirubin,Total 1.2 mg/dl (0.2-1); Globulin 3.6 gm/dl (2.5-4.0); Thyroid Stimulating Hormone 3.93 uIu/ml (0.300-4.500); Total Protein 7.2 gm/dl (6.4-8.2); Troponin I 1.23 ng/ml (0-0.045)
[2020-08-23] MEDS ORDERED: STAT IV Infusion **Titration per Protocol STA (18:24)
[2020-08-23] MEDS ORDERED: dilTIAZem HCL 125 MG in DEXTROSE 5% 100 ML IV SCH (18:30)
[2020-08-23] MEDS ORDERED: SODIUM CHLORIDE 0.9% 1000ML 500 ML IV ONE (18:50)
[2020-08-23] MEDS ORDERED: ASPIRIN CHEW 324 MG PO STA (18:50)
[2020-08-23] MEDS ORDERED: Heparin IV Adult Wt-Based Standard WITH Bolus Protocol IV STA (18:50)
[2020-08-23] MEDS ORDERED: HEPARIN SOD (PORCINE) 1000 UNIT/ML IV ONE ×2 (19:05→19:58)
[2020-08-23] MEDS ORDERED: HEPARIN SODIUM/DEXTROSE 25,000 UNITS/500 ML BAG IV SCH (19:05)
[2020-08-23] MEDS ORDERED: Heparin IV Adult Wt-Based Low-Dose *NO* Bolus Protocol IV SCH (19:51)
[2020-08-23] MEDS ORDERED: POTASSIUM CHLORIDE CRTAB 20 MEQ TABCR PO STA (19:54)
[2020-08-23] MEDS ORDERED: MAGNESIUM SULFATE / D5W 1 GM/100 ML BAG IV ONE (19:55)
[2020-08-23] MEDS ORDERED: METOPROLOL TARTRATE 1 MG/ML VIAL IV PRN (19:59)
[2020-08-23] MEDS ORDERED: METOPROLOL TARTRATE 1 MG/ML VIAL IV STA (19:59)
[2020-08-23] MEDS ORDERED: LACTATED RINGER'S 500 ML IV ONE (20:00)
[2020-08-23] MEDS: HEPARIN SODIUM/DEXTROSE 25,000 UNITS/500 ML BAG IV SCH (20:09)
[2020-08-23] MEDS ORDERED: METOPROLOL TARTRATE 25 MG TAB PO STA (20:15)
[2020-08-23] MEDS ORDERED: hydrALAZINE HCL 20 MG/ML VIAL IV ONE (20:17)
--- NOTE | 2020-08-23 20:26 | History & Physical Report ---
Date of Service August 23, 2020 Assessment & Plan (1) Atrial fibrillation with rapid ventricular response: Paroxysmal atrial fibrillation with reported history of one other episode - - Risk factors: Obesity, HTN, MOSHE- non-compliant with CPAP, ETOH use - Lopressor 5mg IV q4 PRN HR >120 - Lopressor tartrate 25mg PO q8 scheduled- can increase dose or time interval if needed - K replaced - 2GM Magnesium - Heparin drip initiated secondary to troponin- - CHADVASC-1 HAS-BLED-2 - ECHO in the morning - Rate control tonight- Cardiology consulted for rhythm vs. rate control options and anticoagulation recommendations (2) Elevated troponin: Likely type II related to demand from tachycardia Last ECG for comparison in 2019 - Repeat ECG improved following rate control - Rate control- re-evaluate and follow Troponin I - Continue heparin drip as above (3) Mild aortic stenosis: ECHO in morning as above - Currently no acute needs- no limitations with activity or changing symptoms (4) HTN (hypertension): Appears well controlled - Labile while in EMD also noted on his PCP review - Angioedema with ELENA- avoid ARB as well - Trend in house- if need immediate control- consider hydralazine IV (5) Dyslipidemia: Continue Atorvastatin 80 mg QHS (6) Obesity: Patient engaged in trying to decrease weight - meets criteria for metabolic syndrome - HGB A1C over the past year has been 6.1 most recent 08/16/20 (7) History of prostate cancer: Follows with urology - no LUTS at this time (8) Mild sleep apnea: Patient with sleep study done in 2018 with CPAP of 12 reports he has masks at home but was never able to get CPAP machine - Case management consult for assistance - CPAP 12 ordered for here at night, if patient can tolerate - HCO3 at 27-29 over the trend- so can concur with chronic hypoventilation History of Present Illness Primary Care Provider: Elian Vazquez, DO 70 YOM with past medical history of HTN, HLD, Aortic Stenosis, "prediabetic", spinal stenosis, arthritis, OA, Obesity, MOSHE, prostatectomy for prostate CA (2006) . Patient comes in today for complaints of fast heart rate, lightheadedness, and dyspnea. This has been on going since [id number]. This occurred after he was helping his marycruz move. He felt like he was staying hydrated during that time. The patient reports that he had a short episode of afib noted in the past, and was only on Metoprolol at that time, but was taken off. He endorses that since then he has not noted any palpitations or symptoms like this. he has not tried anything at home for relief. He denies any chest pain, nausea or vomiting. The patient had a stress test done in in 2017 hitting 100% MPHR with normal LVF and moderate AV sclerosis. In the EMD the patient was started on heparin drip secondary to elevated troponin I at 1.23. For his rate control he was given Lopressor 5mg IV with decrease in HR to 110-120, he received another 5mg of Lopressor IV along with Lopressor 25mg PO. Patient will be admitted for rate control, continue anticoagulation with Heparin drip while trending out his troponin I, ECHO, and cardiology consult in regards to rate vs. rhythm control continuous churn buttermaker. Allergies Allergy/AdvReac Type Severity Reaction Status Date / Time ramipril Allergy Mild Swollen Verified 08/23/20 18:57 lips Home Medications Medication Instructions Recorded Confirmed Type aspirin 325 mg PO QAM 03/17/18 08/23/20 History cholecalciferol (vitamin D3) 1,000 unit PO QAM 03/17/18 08/23/20 History [Vitamin D3] cyanocobalamin (vitamin B-12) 2,000 mcg PO QAM cap 12/01/18 08/23/20 History 1,000 mcg capsule atorvastatin 80 mg tablet 80 mg PO QPM #90 tab 08/08/19 08/23/20 Rx Past Med/Surg History Medical History (Updated 08/23/20 @ 21:13 by RONNIE Rose) Atrial fibrillation Single episode 10-15 YEARS AGO Cardiac murmur Moderate mitral regurgitation and moderate AV sclerosis present on 2019 echo mild aortic stenosis Carotid artery plaque Chronic osteoarthritis Dyslipidemia Erectile dysfunction History of gout History of prostate cancer (~2006) s/p prostatectomy, Followed by [facility] Urology History of skin cancer BACK, RT ELBOW (REMOVED) HTN (hypertension) Internal inguinal hernia Mild aortic stenosis Mild sleep apnea PRESCRIBED CPAP BUT NOT CURRENTLY USING BC OF INSURANCE ISSUES Neurogenic claudication due to lumbar spinal stenosis Peripheral neuropathy Pulmonary hypertension Solitary thyroid nodule Neg FNA 2014 Vitamin D deficiency Surgical History H/O prostatectomy H/O Spinal surgery L2-S1 Decompression and Fusion, use of Infuse, Spinal Cord Monitoring(Not Applicable) - Michi Carvajal DO History of carpal tunnel release History of cataract surgery History of colonoscopy 07/2017 colon polyp Repeat 5 yrs History of tooth extraction Status post biopsy of thyroid gland Family History Father Heart failure Myocardial infarction Brother Heart failure Myocardial infarction Unknown Hypertension Son Myocardial infarction Denies family history of Ovarian cancer Prostate cancer Breast cancer Colorectal cancer Social History Smoking Status: Never smoker Second Hand Exposure: No; Hx Alcohol Use: Yes Alcohol type: beer Alcohol Intake Frequency: 2-3 x/Week Hx Substance Use: No Preferred Language: Turkmen Communication Ability: Effective Visual Impairment: Limited Hearing Ability: Normal Filtering Machine Tender Required: No Beliefs That Will Affect Care: None marital status: / Current Living Situation: Alone current occupational status: retired How many Children do You have: 2 Feels Safe at Home: Yes Childhood Exposure to Second-Hand Smoke: Yes caffeine: Yes Dental Care, Regularly: Yes Physical Activity Frequency: Does not Exercise Seatbelt Use: always Sunscreen Use: No Assistive Devices: Glasses Review of Systems Review of Systems: REVIEW OF SYSTEMS: Constitutional: No fever, sweats or chills Eyes: No diplopia, no worsening or blurred vision ENT: normal hearing, no trouble swallowing Respiratory: (+) dyspnea with exertion, No cough, sputum, dyspnea at rest Cardiovascular: (+) palpitations, No chest pain, tightness or palpitations Abdomen: No pain, nausea, vomiting, diarrhea or constipation Musculoskeletal: (+) chronic low back pain, No joint pain, calf pain, swelling Neurologic: No weakness, numbness/tingling, or balance problems Psychiatric: No anxiety or depression Skin: No rash or itch Physical Exam Physical Exam: PHYSICAL EXAM: General: awake, alert, no apparent distress Head: Normocephalic, atraumatic ENT: PERRL, EOMI, no pharyngeal exudate, mucous membranes moist Neuro: AAO x 3, speech clear and appropriate, strength intact bilaterally 5/5, sensation intact and equal all extremities and dermatomes, no pronator drift Chest: equal rise and fall of the chest, no accessory muscle use, no heaves or thrills, Clear to auscultation, on room air, Cardiac: irregular rate and rhythm, telemetry reviewed- afib with RVR, Systolic Murmur, skin warm dry, cap refill <3 seconds, peripheral pulses +2 no JVD, no murmur, no edema GI: NABS x 4 quadrants, soft, nontender to palpation, no rebound, guarding or tenderness : Spontaneously voiding, no pain, no CVA tenderness Extremities: Normal inspection, no peripheral edema or erythema, calfs nontender to palpation Psych: Normal mood and affect Skin: no rash or erythema Results & Data Results & Data ([facility]) Vital Signs (Past 12 Hours) Vital Signs Temp Pulse Resp BP Pulse Ox 08/23/20 20:07 160 H 147/113 H 08/23/20 18:31 114 H 22 91/71 L 94 08/23/20 18:00 117 H 20 105/70 94 08/23/20 17:31 174 H 18 123/83 93 08/23/20 17:22 94 08/23/20 16:56 36.3 C L 103 H 20 107/71 96 Laboratory Results Abnormal lab results 08/23/20 08/23/20 Range/Units 17:18 17:18 [place] # (Auto) 1.17 H (0.11-0.59) K/uL Total Bilirubin 1.2 H (0.2-1) mg/dl Troponin I 1.230 H* (0-0.045) ng/ml Diagnostic Findings Chest X-Ray 08/23/20 17:15 XR chest 1V portable HISTORY: weakness COMPARISON: Chest 05/29/2006. FINDINGS: No pneumothorax. No pleural effusions. The heart remains mildly enlarged. There is a mildly tortuous thoracic aorta. There are low lung findings with mild elevation of the right hemidiaphragm. A few right basilar linear densities favor subsegmental atelectasis. Punctate calcified granuloma within the left upper lobe. No new focal lung consolidations to suggest pneumonia. No evidence for edema. IMPRESSION: No significant change compared to the prior study. No acute process. Electronically signed by: Deejay Hernandez M.D. 08/23/2020 5:38 PM Medications Administered Heparin Sodium/Dextrose (Heparin Sodium/Dextrose) 25,000 units in 500 mls @ 20 mls/hr IV .Q24H [facility]; Protocol Stop: 09/22/20 19:59 Last Admin: 08/23/20 20:09 Dose: 1,000 units/hr, 20 mls/hr Documented by: [id number] Cosigned by: [id number] Magnesium Sulfate/Dextrose (Magnesium Sulfate / D5w) 1 gm in 100 mls @ 50 mls/hr IV ONE ONE Stop: 08/23/20 21:54 Last Admin: 08/23/20 20:17 Dose: 100 mls/hr Documented by: [id number] Discontinued Medications Aspirin (Aspirin Chew 324 Mg) 324 mg PO NOW STA Stop: 08/23/20 18:51 Last Admin: 08/23/20 19:34 Dose: 324 mg Documented by: [id number] Documented by: [id number] Cosigned by: [id number] Heparin Sodium (Porcine) (Heparin Sod (Porcine) 1000 Unit/Ml) 1 units IV NOW ONE Stop: 08/23/20 19:06 Last Admin: 08/23/20 19:41 Dose: Not Given Documented by: [id number] Heparin Sodium (Porcine) (Heparin Sod (Porcine) 1000 Unit/Ml) 7,000 units IV NOW ONE Stop: 08/23/20 19:59 Last Admin: 08/23/20 20:10 Dose: 7,000 units Documented by: [id number] Cosigned by: [id number] Heparin Sodium/Dextrose (Heparin Iv Adult Wt-Based Standard With Bolus Protocol) 1 ea IV NOW STA; Protocol Stop: 08/23/20 18:51 Last Admin: 08/23/20 19:41 Dose: Not Given Documented by: [id number] Hydralazine HCl (Hydralazine Hcl 20 Mg/Ml Vial) 5 mg IV NOW ONE Stop: 08/23/20 20:18 Last Admin: 08/23/20 20:21 Dose: Not Given Documented by: [id number] Sodium Chloride (Nss 1000ml) 1,000 mls @ 999 mls/hr IV .Q1H1M ONE Stop: 08/23/20 18:32 Last Infusion: 08/23/20 19:42 Dose: 0 mls/hr Documented by: [id number] Admin: 08/23/20 17:50 Dose: 999 mls/hr Documented by: [id number] Sodium Chloride (Nss 1000ml) 500 mls @ 999 mls/hr IV .Q31M ONE Stop: 08/23/20 19:20 Last Admin: 08/23/20 19:41 Dose: Not Given Documented by: [id number] Heparin Sodium/Dextrose (Heparin Sodium/Dextrose) 25,000 units in 500 mls @ 31 mls/hr IV .Q16H8M [facility]; Protocol Stop: 09/22/20 19:04 Last Admin: 08/23/20 19:42 Dose: Not Given Documented by: [id number] Lactated Ringer's (Lr) 500 mls @ 999 mls/hr IV .Q31M ONE Stop: 08/23/20 20:30 Last Admin: 08/23/20 20:44 Dose: 999 mls/hr Documented by: [id number] Metoprolol Tartrate (Metoprolol Tartrate 1 Mg/Ml Vial) 5 mg IV NOW STA Stop: 08/23/20 20:00 Last Admin: 08/23/20 20:07 Dose: 5 mg Documented by: [id number] Metoprolol Tartrate (Metoprolol Tartrate 1 Mg/Ml Vial) 5 mg IV ONE PRN PRN Reason: HR ABOVE 120 Last Admin: 08/23/20 20:39 Dose: 5 mg Documented by: [id number] Metoprolol Tartrate (Metoprolol Tartrate 25 Mg Tab) 25 mg PO NOW STA Stop: 08/23/20 20:16 Last Admin: 08/23/20 20:40 Dose: 25 mg Documented by: [id number] Miscellaneous (Stat Iv Infusion Titration Per Protocol) 1 ea N/A NOW STA Stop: 08/23/20 18:25 Last Admin: 08/23/20 19:40 Dose: Not Given Documented by: [id number] ECG Additional Comments: Atrial fibrillation with rapid ventricular response with premature ventricular or aberrantly conducted complexes Inferior-posterior infarct (cited on or before 20-FEB-2019) ST & T wave abnormality, consider lateral ischemia Abnormal ECG When compared with ECG of 21-FEB-2019 00:53, Atrial fibrillation has replaced Sinus rhythm ST now depressed in Anterolateral leads T wave inversion now evident in Lateral leads Atrial fibrillation with rapid ventricular response Inferior infarct (cited on or before 20-FEB-2019) Abnormal ECG When compared with ECG of 23-AUG-2020 17:06, (unconfirmed) Vent. rate has decreased BY [address] less depressed in Anterior leads T wave inversion no longer evident in Lateral leads Code Status & VTE Plan Code Status CODE: FULL VTE: SCD's, Heparin drip Critical Care Time Total Critical Care Time: 20 Rythm analysis and rate control provided real time for afib with RVR Supervising Physician Co-Signing Physician Notes Attending addendum: I have physically seen this patient, have supervised the [place]'s activities, and agree with the H&P unless as otherwise noted. Assessment and Plan: Atrial fibrillation with rapid ventricular response/elevated troponin/hypertension- The patient will be admitted to telemetry for serial cardiac enzymes, serial EKG's, cardiac rhythm monitoring and a 2-D echocardiogram with Dopplers. Metoprolol tartrate 25 mg p.o. every 8 hours Lopressor 5 mg IV every 4 hours as needed heart rate greater than 120 Optimize potassium to 4.0 or greater Given magnesium sulfate 2 g IV Continue heparin drip per protocol Consult cardiology Mild aortic stenosis- Echo for the a.m. Monitor preload Dyslipidemia- Continue atorvastatin Check a fasting lipid panel Remaining orders and notations as noted PG Care Time/CCT Total # of Minutes Spent Total Time Spent with Patient: Total time spent is greater than 50% in coordination of care (as documented) at patient's floor/unit and/or counseling patient: Total Critical Care Time: 20 Coding Level of Care Code 37127 Initial Inpt Care Lvl 3 Diagnoses Atrial fibrillation with rapid ventricular response I48.91 Elevated troponin R77.8 Mild aortic stenosis I35.0 HTN (hypertension) I10 Hypertension type: essential hypertension Dyslipidemia E78.5 Obesity E66.01; Z68.41 Body mass index: BMI 40.0-44.9 Obesity classification: adult class 3 (BMI >= 40) Obesity type: due to excess calories Serious obesity comorbidity presence: unspecified whether serious comorbidity present History of prostate cancer Z85.46 Mild sleep apnea G47.30 (1) HTN (hypertension) Hypertension type: essential hypertension Qualified Code(s): I10 - Essential (primary) hypertension (2) Obesity Body mass index: BMI 40.0-44.9 Obesity classification: adult class 3 (BMI >= 40) Obesity type: due to excess calories Serious obesity comorbidity presence: unspecified whether serious comorbidity present Qualified Code(s): E66.01 - Morbid (severe) obesity due to excess calories; Z68.41 - Body mass index [BMI]40.0-44.9, adult
[2020-08-23] MEDS ORDERED: ACETAMINOPHEN 325 MG TAB PO PRN (22:08)
[2020-08-23] MEDS ORDERED: ONDANSETRON INJ 2 MG/ML 2 ML VIAL IV PRN (22:08)
[2020-08-23] MEDS: ATORVASTATIN 40 MG TAB PO SCH (23:09)
[2020-08-23] MEDS: METOPROLOL TARTRATE 25 MG TAB PO SCH (23:10)
[2020-08-24] MEDS: METOPROLOL TARTRATE 1 MG/ML VIAL IV PRN ×3 (01:41→20:38)
[2020-08-24] MEDS ORDERED: dilTIAZem HCL 30 MG TAB PO ONE (02:10)
[2020-08-24 03:05] LABS: Appearance Urine Cloudy (Clear); Bacteria Urine Automated Negative (Negative); Blood Urine Negative (Negative); Color Urine Dark Yellow; Epithelial Cell Urine Auto 0-5 /lpf (0-5); Glucose Urine UA Negative (Negative); Ketones Urine Trace (Negative); Leukocyte Esterase Urine Negative (Negative); Nitrite Urine Negative (Negative); Protein Urine Negative (Negative); Specific Gravity Urine 1.026 (1.000-1.030); Urobilinogen Urine Negative (Negative)
[2020-08-24 03:17] LABS: Bilirubin Urine 1+ (Negative)
[2020-08-24 04:48] LABS: Basophils # (auto) 0.02 K/uL (0-0.2); Basophils % (auto) 0.3 %; Eosinophils # (auto) 0.12 K/uL (0-0.5); Eosinophils % (auto) 1.8 %; Hematocrit (blood only) 41.3 % (42-52); Hemoglobin 13.8 g/dL (14.0-18.0); Immature Granulocytes # (auto) 0.01 K/uL (0.00-0.02); Immature Granulocytes % (auto) 0.2 %; Lymphocytes % (auto) 33.1 %; Mean Corpuscular Hemoglobin 30.1 pg (25-34); Mean Corpuscular Hgb Conc 33.4 g/dL (32-36); Mean Corpuscular Volume 90.2 fL (80-100); Mean Platelet Volume 9.9 fL (7.4-10.4); Monocytes # (auto) 0.83 K/uL (0.11-0.59); Monocytes % (auto) 12.5 %; Neutrophils # (auto) 3.46 K/uL (1.4-6.5); Neutrophils % (auto) 52.1 %; Platelet Count 188 K/uL (130-400); RDW Coefficient of Variation 13.6 % (11.5-14.5); RDW Standard Deviation 45.1 fL (36.4-46.3); Red Blood Count 4.58 M/uL (4.7-6.1); White Blood Count 6.64 K/uL (4.8-10.8)
[2020-08-24 04:59] LABS: Partial Thromboplastin Ratio 1.9
[2020-08-24 05:06] LABS: BUN Creatinine Ratio 14.2 (10-20); Calcium 8.6 mg/dl (8.5-10.1); Creatinine Clr Calc Pharmacy 91.7 ml/min; Est GFR (Non-African American) 85.4 ml/min; Magnesium 2.3 mg/dl (1.8-2.4); Potassium 4.2 mmol/L (3.5-5.1)
[2020-08-24] MEDS ORDERED: SODIUM CHLORIDE 0.9% 1000ML 1,000 ML IV STA (05:54)
--- NOTE | 2020-08-24 07:18 | Hospitalist Progress Note ---
Date of Service August 24, 2020 Assessment & Plan (1) Atrial fibrillation with rapid ventricular response: Emiliano Bush is a 70M w/ hx of pAF, HLD, gout, HTN who presents w/ 5 days of ALBERTS w/ 1-2 days of exacerbation. Acute HFpEF - EF 50-55% - Received one dose lasix early this am and later repeated. - follow I and O - follow daily weight - monitor renal function Paroxysmal atrial fibrillation w/ RVR - etiology considered: valvular afib vs ischemic event (less likely) - 1 prior episode in distant past - 08/23 echo: mod concentric LVH. ef 50-55. no rwma. mod valvular . mod MR - cardiology consulted. current regimen: digoxin (check lvl in AM). metoprolol 50 PO BID. PRN Lopressor 5mg IV q4 PRN HR >120 - rates up to 150s, continue titrating regimen - CHADVASC-2 HAS-BLED-2. will consider anticoagulation elevated troponin - likely from demand ischemia. No midsternal chest pain, but has some left lateral rib pain which is less consistent w/ anginal cp - old q waves in inferior leads - peaked at ~1.2->1.1 - continue heparin drip - planning for cardiac cath on 08/25 because of above changes in context of strong family cardiac hx. mild aortic stenosis ECHO in morning as above - Currently no acute needs- no limitations with activity or changing symptoms hypertension Appears well controlled, mostly normotensive - metoprolol 50 PO BID as above dyslipidemia Continue Atorvastatin 80 mg QHS hx of prostate cancer Follows with urology - no LUTS at this time mild obstructive sleep apnea Patient with sleep study done in 2018 with CPAP of 12 reports he has masks at home but was never able to get CPAP machine - Case management consult for assistance - CPAP ordered, but patient not tolerating obesity Patient engaged in trying to decrease weight FEN/GI: NPO after midnight, no IV fluids anticoag: heparin drip code: full dispo: PCU (2) Elevated troponin: (3) Mild aortic stenosis: (4) HTN (hypertension): (5) Dyslipidemia: (6) Obesity: (7) History of prostate cancer: (8) Mild sleep apnea: Admission and Anticipated Discharge Date Admission Date: August 23, 2020 Supervising Physician Co-Signing Physician Notes Resident Physician Supervision Note: I independently interviewed and examined the patient and verified the baum history and physical, reviewed labs and image studies and agree with resident Dr. Watters findings and care plan. Subjective Patient's main complaint is his breathing. He notes that he had symptom improvement after ED treatment (rate control). Today, his symptoms are worsened by his "phlegm/sinuses." Never smoker. Denies pleuritic chest pain. + mild sputum light yellow in color. No numbness/tingling or jaw pain. Review of Systems Review of Systems: Constitutional: Denies fever, chills. gained 4-5 lbs couple month. mild fatigue Eyes: Denies blurry vision, vision changes ENT: Denies sore throat, cough. Cardiovascular: Denies chest pain. occasional palpitations overnight, none c urrently. Mild discomfort at L ribs, no radiation, nonreproducible. Respiratory: Denies shortness of breath Gastrointestinal: Denies abdominal pain, nausea, vomiting, constipation, diarrhea Genitourinary: Denies urinary symptoms including dysuria Musculoskeletal: Denies weakness, muscle aches/pain, joint aches/pain Neurological: Denies headache, numbness, tingling, focal weakness Physical Exam Physical Exam: General: Grossly A&O. NAD. Cooperative. HEENT: Atraumatic, normocephalic. ? JVD on right, difficult to assess. Pulm: Breath sounds on right slightly quieter. + crackles on attending's exam. No respiratory distress. PM exam: mild crackles at bases. Cardiac: RRR, -mrg. Radial pulses intact and symmetrical. 2+ LE edema. Abdominal: Nontender, nondistended, soft. Obese abdomen. Results & Data Results & Data ([facility]) Vital Signs (Past 12 Hours) Vital Signs Temp Pulse Pulse Resp BP BP BP 08/24/20 06:56 36.5 C 97 H 20 93/71 L 08/24/20 06:28 97/68 L 08/24/20 05:40 98/55 L 08/24/20 03:07 37.0 C 78 18 91/65 L 08/24/20 02:20 119 H 08/24/20 01:41 124 H 93/64 L 08/23/20 23:30 93 H 34 H 08/23/20 23:12 93 H 110/74 08/23/20 22:16 119 H 08/23/20 22:08 36.6 C 122 H 20 98/66 L 08/23/20 22:00 36.6 C 122 H 20 98/66 L 08/23/20 21:45 118 H 25 H 106/75 08/23/20 21:40 105 H 26 H 102/81 08/23/20 21:32 136 H 17 08/23/20 21:30 116 H 22 08/23/20 21:17 108 H 20 100/80 08/23/20 21:01 111 H 20 95/77 L 08/23/20 21:00 118 H 23 08/23/20 20:45 110 H 25 H 117/80 08/23/20 20:39 123 H 118/74 08/23/20 20:30 117 H 24 118/74 08/23/20 20:16 130 H 23 104/71 08/23/20 20:09 134 H 24 108/79 08/23/20 20:07 160 H 147/113 H 08/23/20 20:00 127 H 19 147/113 H 08/23/20 19:55 144 H 18 128/100 08/23/20 19:36 146 H 128/100 08/23/20 19:30 144 H 17 Pulse Ox Pulse Ox 08/24/20 06:56 93 08/24/20 06:28 08/24/20 05:40 08/24/20 03:07 95 08/24/20 02:20 08/24/20 01:41 08/23/20 23:30 94 08/23/20 23:12 08/23/20 22:16 08/23/20 22:08 94 94 08/23/20 22:00 94 08/23/20 21:45 08/23/20 21:40 08/23/20 21:32 08/23/20 21:30 08/23/20 21:17 08/23/20 21:01 08/23/20 21:00 08/23/20 20:45 95 08/23/20 20:39 08/23/20 20:30 92 08/23/20 20:16 94 08/23/20 20:09 96 08/23/20 20:07 08/23/20 20:00 95 08/23/20 19:55 97 08/23/20 19:36 96 08/23/20 19:30 Resident Activity Tracking Resident Involvement: Resident Care Provided Care Provided: Adult Hospital Medicine (1) HTN (hypertension) Hypertension type: essential hypertension Qualified Code(s): I10 - Essential (primary) hypertension (2) Obesity Body mass index: BMI 40.0-44.9 Obesity classification: adult class 3 (BMI >= 40) Obesity type: due to excess calories Serious obesity comorbidity presence: unspecified whether serious comorbidity present Qualified Code(s): E66.01 - Morbid (severe) obesity due to excess calories; Z68.41 - Body mass index [BMI]40.0-44.9, adult
[2020-08-24] MEDS ORDERED: SODIUM CHLORIDE 0.65% NA SOLN 45 ML (OCEAN) NAE ONE (07:28)
[2020-08-24] MEDS ORDERED: SODIUM CHLORIDE 0.65% NA SOLN 45 ML (OCEAN) ONE (07:31)
[2020-08-24] MEDS: METOPROLOL TARTRATE 25 MG TAB PO SCH (08:16)
[2020-08-24] MEDS: ASPIRIN 325 MG ECTAB PO SCH (08:17)
--- NOTE | 2020-08-24 09:30 | XCELERA ---
[id number]
[2020-08-24] MEDS ORDERED: METOPROLOL TARTRATE 25 MG TAB PO ONE (09:45)
[2020-08-24] MEDS ORDERED: FUROSEMIDE 40 MG in SYRINGE 0 ML IV ONE (10:00)
[2020-08-24] MEDS ORDERED: guaiFENesin 600 MG TABCR PO ONE (10:46)
--- NOTE | 2020-08-24 10:54 | Cardiology Consultation ---
Date of Consultation August 24, 2020 Assessment & Plan (1) Atrial fibrillation with rapid ventricular response: 2. Elevated troponin 3. Shortness of breath 4. Aortic stenosis Patient admitted with shortness of breath and palpitations. He was found to be in new onset atrial fibrillation with RVR. Tele reviewed-- remains in atrial fibrillation with rate 120s this am. Plan to pursue rate control strategy for now as he has not been chronically anticoagulated and was likely in atrial fibrillation>48 hours prior to presentation. Increase metoprolol tartrate to 50 mg bid, may need to titrate further. [id number], recommend initiating anticoagulation with Eliquis prior to discharge. Concern for coronary artery disease given his elevated troponin and EKG changes. Currently chest pain free. Echo with normal LV systolic function and no regional wall motion abnormalities. Recommend ischemic evaluation with cardiac catheterization once heart rate is improved. Tentatively plan for tomorrow AM. Continue heparin drip. NPO after midnight. On exam appears mildly congested and is having symptoms of orthopnea. Plan to give Lasix 40 mg IV x1 dose. Thank you for allowing us to participate in the care of this patient. Supervising Physician Co-Signing Physician Notes Patient was interviewed and examined. He is feeling better after initial treatment. He is currently unaware of his rhythm. We will tentatively plan catheterization tomorrow, he understands and agrees to proceed. History of Present Illness Reason for Consultation: afib with RVR Elevated troponin Attending Physician: Bella Hernandez MD History of Present Illness Mr. Bush is a very pleasant 70-year-old male admitted yesterday with new onset atrial fibrillation with RVR. Medical history significant for hypertension, dyslipidemia, spinal stenosis, aortic stenosis, prediabetes. Patient reports he started feeling unwell last Sunday evening with mild shortness of breath and fatigue. Over the weekend he helped his friend move heavy furniture and boxes. He experienced significant dyspnea with exertion and palpitations he describes as "skipped beats." Denies any specific chest pain but had a sensation in his chest that he cannot get a deep breath. His symptoms persisted over the next several days with very little activity therefore yesterday he sought medical attention. In the emergency department he was noted to be in atrial fibrillation with rapid ventricular response at 167 bpm. Initial EKG with ST depressions. Initial troponin 1.2, down to 1.1 today. Treated initially with diltiazem drip, currently on oral metoprolol tartrate 25 mg q 8 hours. On a heparin drip. At the time of our conversation he appeared dyspnea Neck with short sentences. He felt less short of breath with sitting up. Reports orthopnea/PND symptoms overnight. Continues with intermittent palpitations which are improved overall. Denies chest pain. Notes some abdominal bloating and lower extremity edema. No dizziness, near-syncope or syncope. Denies prior history of atrial fibrillation. Also denies history of coronary artery disease. At baseline has noticed some mild exertional dyspnea with more strenuous activity. Family history: Father from [place] at 62. Brother with pacemaker ?other cardic issues in 50s. Brother with multiple stents in his 60s. Son from sudden cardiac (autopsy consistent with [place]) at 36. Social history: . Retired, previously worked in construction. Nonsmoker. Allergies Allergy/AdvReac Type Severity Reaction Status Date / Time ramipril Allergy Mild Swollen Verified 08/23/20 18:57 lips Home Medications Medication Instructions Recorded Confirmed Type aspirin 325 mg PO QAM 03/17/18 08/23/20 History cholecalciferol (vitamin D3) 1,000 unit PO QAM 03/17/18 08/23/20 History [Vitamin D3] cyanocobalamin (vitamin B-12) 2,000 mcg PO QAM cap 12/01/18 08/23/20 History 1,000 mcg capsule atorvastatin 80 mg tablet 80 mg PO QPM #90 tab 08/08/19 08/23/20 Rx Patient History Medical History (Updated 08/23/20 @ 21:13 by RONNIE Rose) Atrial fibrillation Single episode 10-15 YEARS AGO Cardiac murmur Moderate mitral regurgitation and moderate AV sclerosis present on 2019 echo mild aortic stenosis Carotid artery plaque Chronic osteoarthritis Dyslipidemia Erectile dysfunction History of gout History of prostate cancer (~2006) s/p prostatectomy, Followed by [facility] History of skin cancer BACK, RT ELBOW (REMOVED) HTN (hypertension) Internal inguinal hernia Mild aortic stenosis Mild sleep apnea PRESCRIBED CPAP BUT NOT CURRENTLY USING BC OF INSURANCE ISSUES Neurogenic claudication due to lumbar spinal stenosis Peripheral neuropathy Pulmonary hypertension Solitary thyroid nodule Neg FNA 2014 Vitamin D deficiency Surgical History H/O prostatectomy H/O Spinal surgery L2-S1 Decompression and Fusion, use of Infuse, Spinal Cord Monitoring(Not Applicable) - Michi Carvajal DO History of carpal tunnel release History of cataract surgery History of colonoscopy 07/2017 colon polyp Repeat 5 yrs History of tooth extraction Status post biopsy of thyroid gland Family History Father Heart failure Myocardial infarction Brother Heart failure Myocardial infarction Unknown Hypertension Son Myocardial infarction Denies family history of Ovarian cancer Prostate cancer Breast cancer Colorectal cancer Social History Smoking Status: Never smoker Second Hand Exposure: No; Hx Alcohol Use: Yes Alcohol type: beer Alcohol Intake Frequency: 2-3 x/Week Hx Substance Use: No Preferred Language: Yoruba Communication Ability: Effective Visual Impairment: Limited Hearing Ability: Normal Completions Engineer Required: No Beliefs That Will Affect Care: None marital status: / Current Living Situation: Alone current occupational status: retired How many Children do You have: 2 Feels Safe at Home: Yes Childhood Exposure to Second-Hand Smoke: Yes caffeine: Yes Dental Care, Regularly: Yes Physical Activity Frequency: Does not Exercise Seatbelt Use: always Sunscreen Use: No Assistive Devices: Glasses Review of Systems Review of Systems: All systems reviewed & are unremarkable except as noted in HPI & below Physical Exam Physical Exam: General: Dyspneic, on 2L O2 via nasal cannula. HEENT: Head is normal. PERRLA. EOMI. Sclerae anicteric. E Neck: Thick neck. no bruits. No appreciable JVD. Lungs: Faint bibasilar crackles. Cardiac: Distant heart sounds. Irregularly irregular, tachycardic. S1-S2 normal. systolic murmur Abdomen: Soft and nontender. Bowel sounds normal. No mass or organomegaly. No abdominal bruit. Extremities/vascular: -- Well perfused. Trace to 1+ edema, right greater than left Skin: No rash or abnormal lesions. Normal turgor. Neurologic: Nonfocal Psychiatric: Affect appropriate. Alert and oriented. Results & Data ([facility]) Vital Signs (Past 12 Hours) Vital Signs Temp Pulse Pulse Resp BP BP BP 08/24/20 09:51 107 H 106/76 08/24/20 08:15 126/74 08/24/20 07:00 113 H 08/24/20 06:56 36.5 C 97 H 20 93/71 L 08/24/20 06:28 97/68 L 08/24/20 05:40 98/55 L 08/24/20 03:07 37.0 C 78 18 91/65 L 08/24/20 02:20 119 H 08/24/20 01:41 124 H 93/64 L 08/23/20 23:30 93 H 34 H 08/23/20 23:12 93 H 110/74 Pulse Ox 08/24/20 09:51 08/24/20 08:15 08/24/20 07:00 08/24/20 06:56 93 08/24/20 06:28 08/24/20 05:40 08/24/20 03:07 95 08/24/20 02:20 08/24/20 01:41 08/23/20 23:30 94 08/23/20 23:12 Laboratory Results Laboratory Results - last 24 hr 08/23/20 08/23/20 08/23/20 17:18 17:18 17:18 WBC 8.71 RBC 4.90 Hgb 15.1 Hct 45.1 MCV 92.0 MCH 30.8 MCHC 33.5 RDW Std Deviation 45.9 RDW Coeff of Bob 13.5 Plt Count 215 MPV 9.8 Immature Gran % (Auto) 0.2 Neut % (Auto) 51.8 Lymph % (Auto) 32.7 Green % (Auto) 13.4 Eos % (Auto) 1.6 Baso % (Auto) 0.3 Neut # (Auto) 4.50 Lymph # (Auto) 2.85 Green # (Auto) 1.17 H Eos # (Auto) 0.14 Baso # (Auto) 0.03 Immature Gran # (Auto) 0.02 PT 10.7 INR 1.1 APTT 24.6 PTT Ratio 0.9 Sodium 140 Potassium 3.7 Chloride 107 Carbon Dioxide 27 Anion Gap 6.0 BUN 12 Creatinine 1.03 Est Cr Clr Drug Dosing 79.0 Est GFR ( Amer) 83.7 Est GFR (Non-Af Amer) 72.2 BUN/Creatinine Ratio 11.7 Glucose 83 POC Glucose Calcium 9.3 Magnesium 2.0 Total Bilirubin 1.2 H AST 33 ALT 42 Alkaline Phosphatase 68 Troponin I 1.230 H* Total Protein 7.2 Albumin 3.6 Globulin 3.6 Albumin/Globulin Ratio 1.0 TSH 3.930 Urine Color Urine Appearance Urine pH Ur Specific Ranger Urine Protein Urine Glucose (UA) Urine Ketones Urine Blood Urine Nitrite Urine Bilirubin Urine Urobilinogen Ur Leukocyte Esterase Urine WBC (Auto) Urine RBC (Auto) U Hyaline Cast (Auto) U Epithel Cells (Auto) Urine Bacteria (Auto) COVID-19 Eval Order SARS-CoV-2 (PCR) 08/23/20 08/23/20 08/23/20 17:55 17:55 22:13 WBC RBC Hgb Hct MCV MCH MCHC RDW Std Deviation RDW Coeff of Bob Plt Count MPV Immature Gran % (Auto) Neut % (Auto) Lymph % (Auto) Green % (Auto) Eos % (Auto) Baso % (Auto) Neut # (Auto) Lymph # (Auto) Green # (Auto) Eos # (Auto) Baso # (Auto) Immature Gran # (Auto) PT INR APTT PTT Ratio Sodium Potassium Chloride Carbon Dioxide Anion Gap BUN Creatinine Est Cr Clr Drug Dosing Est GFR ( Amer) Est GFR (Non-Af Amer) BUN/Creatinine Ratio Glucose POC Glucose 123 H Calcium Magnesium Total Bilirubin AST ALT Alkaline Phosphatase Troponin I Total Protein Albumin Globulin Albumin/Globulin Ratio TSH Urine Color Urine Appearance Urine pH Ur Specific Ranger Urine Protein Urine Glucose (UA) Urine Ketones Urine Blood Urine Nitrite Urine Bilirubin Urine Urobilinogen Ur Leukocyte Esterase Urine WBC (Auto) Urine RBC (Auto) U Hyaline Cast (Auto) U Epithel Cells (Auto) Urine Bacteria (Auto) COVID-19 Eval Order Covid19 at [facility] SARS-CoV-2 (PCR) NEGATIVE 08/24/20 08/24/20 08/24/20 01:45 02:45 04:10 WBC 6.64 RBC 4.58 L Hgb 13.8 L Hct 41.3 L MCV 90.2 MCH 30.1 MCHC 33.4 RDW Std Deviation 45.1 RDW Coeff of Bob 13.6 Plt Count 188 MPV 9.9 Immature Gran % (Auto) 0.2 Neut % (Auto) 52.1 Lymph % (Auto) 33.1 Green % (Auto) 12.5 Eos % (Auto) 1.8 Baso % (Auto) 0.3 Neut # (Auto) 3.46 Lymph # (Auto) 2.20 Green # (Auto) 0.83 H Eos # (Auto) 0.12 Baso # (Auto) 0.02 Immature Gran # (Auto) 0.01 PT INR APTT PTT Ratio Sodium Potassium Chloride Carbon Dioxide Anion Gap BUN Creatinine Est Cr Clr Drug Dosing Est GFR ( Amer) Est GFR (Non-Af Amer) BUN/Creatinine Ratio Glucose POC Glucose Calcium Magnesium Total Bilirubin AST ALT Alkaline Phosphatase Troponin I 1.240 H* Total Protein Albumin Globulin Albumin/Globulin Ratio TSH Urine Color Dark Yellow Urine Appearance Cloudy A Urine pH 5.0 Ur Specific Ranger 1.026 Urine Protein Negative Urine Glucose (UA) Negative Urine Ketones Trace H Urine Blood Negative Urine Nitrite Negative Urine Bilirubin 1+ H Urine Urobilinogen Negative Ur Leukocyte Esterase Negative Urine WBC (Auto) 1-5 Urine RBC (Auto) 5-10 H U Hyaline Cast (Auto) 1-5 U Epithel Cells (Auto) 0-5 Urine Bacteria (Auto) Negative COVID-19 Eval Order SARS-CoV-2 (PCR) 08/24/20 08/24/20 08/24/20 04:10 04:10 06:23 WBC RBC Hgb Hct MCV MCH MCHC RDW Std Deviation RDW Coeff of Bob Plt Count MPV Immature Gran % (Auto) Neut % (Auto) Lymph % (Auto) Green % (Auto) Eos % (Auto) Baso % (Auto) Neut # (Auto) Lymph # (Auto) Green # (Auto) Eos # (Auto) Baso # (Auto) Immature Gran # (Auto) PT INR APTT 49.0 H* PTT Ratio 1.9 Sodium 138 Potassium 4.2 Chloride 108 H Carbon Dioxide 25 Anion Gap 5.0 BUN 13 Creatinine 0.89 Est Cr Clr Drug Dosing 91.7 Est GFR ( Amer) 99.0 Est GFR (Non-Af Amer) 85.4 BUN/Creatinine Ratio 14.2 Glucose 99 POC Glucose Calcium 8.6 Magnesium 2.3 Total Bilirubin AST ALT Alkaline Phosphatase Troponin I 1.100 H* Total Protein Albumin Globulin Albumin/Globulin Ratio TSH Urine Color Urine Appearance Urine pH Ur Specific Ranger Urine Protein Urine Glucose (UA) Urine Ketones Urine Blood Urine Nitrite Urine Bilirubin Urine Urobilinogen Ur Leukocyte Esterase Urine WBC (Auto) Urine RBC (Auto) U Hyaline Cast (Auto) U Epithel Cells (Auto) Urine Bacteria (Auto) COVID-19 Eval Order SARS-CoV-2 (PCR) 08/24/20 06:59 WBC RBC Hgb Hct MCV MCH MCHC RDW Std Deviation RDW Coeff of Bob Plt Count MPV Immature Gran % (Auto) Neut % (Auto) Lymph % (Auto) Green % (Auto) Eos % (Auto) Baso % (Auto) Neut # (Auto) Lymph # (Auto) Green # (Auto) Eos # (Auto) Baso # (Auto) Immature Gran # (Auto) PT INR APTT PTT Ratio Sodium Potassium Chloride Carbon Dioxide Anion Gap BUN Creatinine Est Cr Clr Drug Dosing Est GFR ( Amer) Est GFR (Non-Af Amer) BUN/Creatinine Ratio Glucose POC Glucose 100 H Calcium Magnesium Total Bilirubin AST ALT Alkaline Phosphatase Troponin I Total Protein Albumin Globulin Albumin/Globulin Ratio TSH Urine Color Urine Appearance Urine pH Ur Specific Ranger Urine Protein Urine Glucose (UA) Urine Ketones Urine Blood Urine Nitrite Urine Bilirubin Urine Urobilinogen Ur Leukocyte Esterase Urine WBC (Auto) Urine RBC (Auto) U Hyaline Cast (Auto) U Epithel Cells (Auto) Urine Bacteria (Auto) COVID-19 Eval Order SARS-CoV-2 (PCR) PG Care Time/CCT Total # of Minutes Spent Total Time Spent with Patient: Total time spent is greater than 50% in coordination of care (as documented) at patient's floor/unit and/or counseling patient: Coding Level of Care Code 53879 Initial Inpt Care Lvl 3 Diagnoses Atrial fibrillation with rapid ventricular response I48.91
[2020-08-24] MEDS ORDERED: POTASSIUM CHLORIDE CRTAB 20 MEQ TABCR PO ONE (16:00)
[2020-08-24] MEDS ORDERED: FUROSEMIDE 40 MG TAB PO ONE (16:00)
[2020-08-24] MEDS ORDERED: DIGOXIN 250 MCG in SYRINGE 9 ML IV ONE ×2 (17:15→19:15)
[2020-08-24] MEDS: HEPARIN SODIUM/DEXTROSE 25,000 UNITS/500 ML BAG IV SCH (19:52)
[2020-08-24] MEDS: ATORVASTATIN 40 MG TAB PO SCH (20:13)
[2020-08-24] MEDS: METOPROLOL TARTRATE 50 MG TAB PO SCH (20:13)
[2020-08-24] MEDS ORDERED: METOPROLOL TARTRATE 1 MG/ML VIAL IV STA (21:50)
[2020-08-25 06:28] LABS: Basophils # (auto) 0.03 K/uL (0-0.2); Basophils % (auto) 0.4 %; Eosinophils # (auto) 0.13 K/uL (0-0.5); Eosinophils % (auto) 1.7 %; Hematocrit (blood only) 43.8 % (42-52); Hemoglobin 14.5 g/dL (14.0-18.0); Immature Granulocytes # (auto) 0.01 K/uL (0.00-0.02); Immature Granulocytes % (auto) 0.1 %; Lymphocytes # (auto) 2.23 K/uL (1.2-3.4); Lymphocytes % (auto) 28.6 %; Mean Corpuscular Hemoglobin 30.5 pg (25-34); Mean Corpuscular Hgb Conc 33.1 g/dL (32-36); Monocytes # (auto) 0.93 K/uL (0.11-0.59); Monocytes % (auto) 11.9 %; Neutrophils # (auto) 4.48 K/uL (1.4-6.5); Neutrophils % (auto) 57.3 %; Platelet Count 186 K/uL (130-400); RDW Coefficient of Variation 13.4 % (11.5-14.5); RDW Standard Deviation 45.2 fL (36.4-46.3); Red Blood Count 4.76 M/uL (4.7-6.1); White Blood Count 7.81 K/uL (4.8-10.8)
[2020-08-25 06:38] LABS: Partial Thromboplastin Ratio 1.5; Partial Thromboplastin Time 39.8 Seconds (21.0-31.0)
[2020-08-25 07:02] LABS: BUN Creatinine Ratio 13.8 (10-20); Calcium 8.8 mg/dl (8.5-10.1); Est GFR (African American) 83.7 ml/min; Est GFR (Non-African American) 72.2 ml/min; Magnesium 2.1 mg/dl (1.8-2.4); Potassium 3.7 mmol/L (3.5-5.1)
[2020-08-25] MEDS: METOPROLOL TARTRATE 50 MG TAB PO SCH (09:07)
[2020-08-25] MEDS: ASPIRIN 325 MG ECTAB PO SCH (09:07)
[2020-08-25] MEDS: METOPROLOL TARTRATE 1 MG/ML VIAL IV PRN (09:21)
[2020-08-25] MEDS ORDERED: HEPARIN (PORCINE) 1000 UNIT/ML 10 ML (CATH LAB USE ONLY) ONE (10:32)
[2020-08-25] MEDS ORDERED: niCARdipine HCL INJ 2.5 MG/ML 10 ML AMP ONE (10:32)
[2020-08-25] MEDS ORDERED: fentaNYL citrate 100 MCG/2 ML VIAL ONE (10:32)
[2020-08-25] MEDS ORDERED: MIDAZOLAM HCL 1 MG/ML 2ML VIAL ONE (10:33)
[2020-08-25] MEDS ORDERED: NITROGLYCERIN/D5W 100MCG/ML 20ML SYR ONE (10:36)
--- NOTE | 2020-08-25 11:44 | Hospitalist Progress Note ---
Date of Service August 25, 2020 Assessment & Plan (1) Atrial fibrillation with rapid ventricular response: Emiliano Bush is a 70M w/ hx of pAF, HLD, gout, HTN who presents w/ 5 days of ALBERTS w/ 1-2 days of exacerbation. Acute HFpEF - EF 50-55% - Received one dose lasix early this am and later repeated. - follow I and O - follow daily weight - monitor renal function Paroxysmal atrial fibrillation w/ RVR - etiology considered: valvular afib vs ischemic event (less likely) - 1 prior episode in distant past - 08/23 echo: mod concentric LVH. ef 50-55. no rwma. mod valvular . mod MR - cardiology consulted. current regimen: digoxin (check lvl in AM). metoprolol 50 PO BID. PRN Lopressor 5mg IV q4 PRN HR >120 - rates up to 150s, continue titrating regimen - CHADVASC-2 HAS-BLED-2. will consider anticoagulation elevated troponin - likely from demand ischemia. No midsternal chest pain, but has some left lateral rib pain which is less consistent w/ anginal cp - old q waves in inferior leads - peaked at ~1.2->1.1 - continue heparin drip - planning for cardiac cath on 08/25 because of above changes in context of strong family cardiac hx. mild aortic stenosis ECHO in morning as above - Currently no acute needs- no limitations with activity or changing symptoms hypertension Appears well controlled, mostly normotensive - metoprolol 50 PO BID as above dyslipidemia Continue Atorvastatin 80 mg QHS hx of prostate cancer Follows with urology - no LUTS at this time mild obstructive sleep apnea Patient with sleep study done in 2018 with CPAP of 12 reports he has masks at home but was never able to get CPAP machine - Case management consult for assistance - CPAP ordered, but patient not tolerating obesity Patient engaged in trying to decrease weight FEN/GI: NPO after midnight, no IV fluids anticoag: heparin drip code: full dispo: PCU (2) Elevated troponin: (3) Mild aortic stenosis: (4) HTN (hypertension): (5) Dyslipidemia: (6) Obesity: (7) History of prostate cancer: (8) Mild sleep apnea: Admission and Anticipated Discharge Date Admission Date: August 23, 2020 Review of Systems Review of Systems: Constitutional: Denies fever, chills, weight change Eyes: Denies blurry vision, vision changes ENT: Denies sore throat, sinus pain Cardiovascular: Denies chest pain, palpitations Respiratory: Denies shortness of breath Gastrointestinal: Denies abdominal pain, nausea, vomiting, constipation, diarrhea Genitourinary: Denies urinary symptoms including dysuria Musculoskeletal: Denies weakness, muscle aches/pain, joint aches/pain Neurological: Denies headache, numbness, tingling, focal weakness Physical Exam Physical Exam: General: Grossly A&O. NAD. Cooperative. HEENT: Atraumatic, normocephalic. EOMI Pulm: CTAB. -wheezes, -rales, -rhonchi. No respiratory distress. Cardiac: RRR, -mrg. Radial pulses intact and symmetrical. Abdominal: Nontender, nondistended, soft. Results & Data Results & Data ([facility]) Vital Signs (Past 12 Hours) Vital Signs Temp Pulse Pulse Resp BP BP BP 08/25/20 11:35 88 16 116/77 08/25/20 11:20 97 H 20 111/79 08/25/20 09:49 100 H 20 121/94 08/25/20 09:21 141 H 106/67 08/25/20 07:53 36.6 C 73 19 106/67 08/25/20 03:03 36.8 C 95 H 20 114/71 08/25/20 00:15 152 H Pulse Ox 08/25/20 11:35 91 08/25/20 11:20 94 08/25/20 09:49 94 08/25/20 09:21 08/25/20 07:53 91 08/25/20 03:03 94 08/25/20 00:15 (1) HTN (hypertension) Hypertension type: essential hypertension Qualified Code(s): I10 - Essential (primary) hypertension (2) Obesity Obesity type: due to excess calories Obesity classification: adult class 3 (BMI >= 40) Serious obesity comorbidity presence: unspecified whether serious comorbidity present Body mass index: BMI 40.0-44.9 Qualified Code(s): E66.01 - Morbid (severe) obesity due to excess calories; Z68.41 - Body mass index [BMI]40.0-44.9, adult
--- NOTE | 2020-08-25 11:52 | Pre Anesthesia Assessment ---
Date of Service August 25, 2020 Pre Sedation Assessment Vital Signs Temp Pulse Pulse Resp BP BP BP 08/25/20 11:35 88 16 116/77 08/25/20 11:20 97 H 20 111/79 08/25/20 09:49 100 H 20 121/94 08/25/20 09:21 141 H 106/67 08/25/20 07:53 97.9 F 73 19 106/67 08/25/20 03:03 98.2 F 95 H 20 114/71 08/25/20 00:15 152 H 08/24/20 23:16 98.8 F 85 18 107/74 08/24/20 22:11 97.9 F 124 H 22 95/63 L 08/24/20 22:08 08/24/20 22:07 125 H 95/63 L 08/24/20 20:38 125 H 100/69 08/24/20 19:04 97.3 F L 92 H 18 118/85 08/24/20 18:51 122 H 08/24/20 17:28 145 H 08/24/20 16:57 110/73 08/24/20 16:30 150 H 107/72 08/24/20 15:32 133 H 08/24/20 15:09 98.2 F 73 17 139/82 Pulse Ox Pulse Ox 08/25/20 11:35 91 08/25/20 11:20 94 08/25/20 09:49 94 08/25/20 09:21 08/25/20 07:53 91 08/25/20 03:03 94 08/25/20 00:15 08/24/20 23:16 90 08/24/20 22:11 92 08/24/20 22:08 92 08/24/20 22:07 08/24/20 20:38 08/24/20 19:04 95 08/24/20 18:51 08/24/20 17:28 08/24/20 16:57 08/24/20 16:30 08/24/20 15:32 08/24/20 15:09 94 Cardiovascular RRR, no murmur, no edema Respiratory normal respiratory effort, lungs clear to auscultation Pre-Sedation Airway Assessment Smoking Status: Never smoker Hx Sleep Apnea: No Hx Difficult Intubation: No Short, Thick Neck: No Thyromental Distance: > or= 3.5 Finger Breadths Oral Cavity: + Chipped Teeth Mallampati Class: IV ASA: ASA3 NPO Status Date of Last Intake of Fluids: 08/24/20 Time of Last Intake of Fluids: 17: Date of Last Intake of Solid Food: 08/24/20 Time of Last Intake of Solid Foods: 17:30 Procedure Planning Contraindications for Sedation: none Current Medications Reviewed: Yes Notes The planned sedation has been discussed with the patient. Informed Consent was obtained. I have identified the patient, determined the appropriateness of sedation and have assessed the patient immediately prior to the procedure. All medicine(s) and interventions are by my order.
--- NOTE | 2020-08-25 12:04 | Post Anesthesia Assessment ---
Date of Service August 25, 2020 Post Sedation Assessment Vital Signs Temp Pulse Pulse Resp BP BP BP 08/25/20 11:35 88 16 116/77 08/25/20 11:20 97 H 20 111/79 08/25/20 09:49 100 H 20 121/94 08/25/20 09:21 141 H 106/67 08/25/20 07:53 97.9 F 73 19 106/67 08/25/20 03:03 98.2 F 95 H 20 114/71 08/25/20 00:15 152 H 08/24/20 23:16 98.8 F 85 18 107/74 08/24/20 22:11 97.9 F 124 H 22 95/63 L 08/24/20 22:08 08/24/20 22:07 125 H 95/63 L 08/24/20 20:38 125 H 100/69 08/24/20 19:04 97.3 F L 92 H 18 118/85 08/24/20 18:51 122 H 08/24/20 17:28 145 H 08/24/20 16:57 110/73 08/24/20 16:30 150 H 107/72 08/24/20 15:32 133 H 08/24/20 15:09 98.2 F 73 17 139/82 Pulse Ox Pulse Ox 08/25/20 11:35 91 08/25/20 11:20 94 08/25/20 09:49 94 08/25/20 09:21 08/25/20 07:53 91 08/25/20 03:03 94 08/25/20 00:15 08/24/20 23:16 90 08/24/20 22:11 92 08/24/20 22:08 92 08/24/20 22:07 08/24/20 20:38 08/24/20 19:04 95 08/24/20 18:51 08/24/20 17:28 08/24/20 16:57 08/24/20 16:30 08/24/20 15:32 08/24/20 15:09 94 Recovery Score Activity: Moves 4 extremities Respiration: Deep Breath/Cough Circulation: +/-20% PreAnes Value Consciousness: Fully Awake Oxygen Saturation: > 92% On Room Air Post Anesthesia Score: 10 Discharge Sedation Level of Care: Fast Track Phase II Post Sedation Plan On clinical assessment, the patient appears to have tolerated the sedation without complications. Patient is recovering as anticipated. Patient will continue to be monitored by nursing and may be discharged when sedation discharge criteria are met per below protocol. Upon Completions of procedure up to 15 minutes continue every 5 minute vital signs and the P.A.R. score; then discharge to a Phase I or Fast Track to Phase II per the following guidelines: * Discharge Patient to appropriate Phase II area if PAR is 8 or greater or return to pre- procedure baseline. The post - procedure orders will be as directed. * If PAR score is less than 8 or not return to pre-procedure baseline then patient will follow Phase I monitoring till PAR is reached for Phase II. The Phase I may be done in procedure room or may call to secure a Phase I area. * If naloxone or flumazenil are used for reversal, hold in Phase I for continued monitoring from when last reversal dose was given for a minimum of 60 minutes or longer pending the nurse and/or physician discretion of patient condition before discharge to Phase II. Please call the Sedation Physician to re-evaluate and complete post-note for discharge to Phase II area. Do NOT discharge from procedure sedation or Phase 1 until post- sedation evaluation note is complete by procedure /sedation MD Sedation Discharge Instructions to be given to the patient at discharge to home.
--- NOTE | 2020-08-25 12:14 | Cardiac Catheterization ---
[facility] Data: Child Care Education Coordinator Cardiac Status Clinical evaluation leading to the procedure CAD Presenation: Non STEMI Anginal Classification: CCS IV Heart Failure: No Cardiogenic Shock within 24 Hours: No Cardiac Arrest within 24 Hours: No Imaging Studies Past 6 Months: Yes Stress Studies Past 6 Months: No Diagnostic Physicians Name: Berry Hughes MD Status: Elective Closure Device Percutaneous Entry Location: Radial Closure Device: Radial Band Recommendations: PCI without planned CABG Intraprocedure Events Significant Disection: No Perforation: No Cardiac Cath Procedure Full Procedure Date August 25, 2020 Pre-Procedure Diagnosis Pre-Procedure Diagnosis: Non STEMI, CHF and Arrhythmia AUC Score AUC Score: 8 Post-Procedure Diagnosis Post-Procedure Diagnosis: Severe CAD and Normal Intracardiac Pressures Procedure(s) Performed Procedure(s) Performed: Coronary Angiography and Left Heart Cath Construction Rigger Berry Hughes MD Estimated Blood Loss Estimated Blood Loss: 5 Medication(s) Medication(s): Fentanyl, Heparin, Lidocaine 1%, Nicardipine, Nitroglycerin and V ersed Summary of Findings Indication: ACS, acute heart failure Access: 6 Fr right radial artery Catheters: [place], diagnostic JR4, pigtail Findings: LM -large caliber, 80 to 90% distal calcified stenosis extending into circumflex/LAD LAD -large caliber, calcified, 40% ostial, 30% diffuse proximal to mid disease, large distal vessel without significant disease and wraps around apex. D1 with 40% ostial stenosis. Circumflex -calcified, 70-80% ostial, mild diffuse proximal disease, large OM 2 without significant disease. RCA - dominant, large caliber, heavily calcified, 100% mid chronic total occlusion. Distal vessels fill retrograde via left to right collaterals. LVEDP - 17 Arterial Closure: TR band Summary: 1. Severe multivessel coronary artery disease -90% distal left main 80% ostial circumflex 100% mid RCA chronic total occlusion. Fills via left to right collaterals. 2. Borderline intracardiac filling pressure (LVEDP 17). Recommendations: Transfer to [facility] for evaluation of CABG Continue heparin infusion Hemodynamics Rest Ao:: 105// Final Ao: 97// LV: 94/17 Recommendations Recommendations: PCI without planned CABG Specimens Specimens: None Radiation Exposure (mGy) 1556 Contrast (mls) 45 Anesthesia moderate [id number] Procedural Complication(s) None Disposition PCU I attest to the content of the Intraoperative Record and any orders documented therein. Any exceptions are noted below. [facility] Card Cath Procedure Codes Cardiac Catheterization Procedure 1: Cardiovascular Cath Procedures: 00698 Coronaries and LHC (+/-LV) Moderate Sedation Procedure 1: Sedation/Anesthesia: 67323 Mod Sedation by the same physician;Init15 Min Child Age 5 & Up PG Care Time/CCT Total # of Minutes Spent Total Time Spent with Patient: Total time spent is greater than 50% in coordination of care (as documented) at patient's floor/unit and/or counseling patient:
--- NOTE | 2020-08-25 12:28 | Electrocardiogram Report ---
Test Reason : Blood Pressure : / mmHG Vent. Rate : 167 BPM Atrial Rate : 178 BPM P-R Int : 000 ms QRS Dur : 092 ms QT Int : 266 ms P-R-T Axes : 000 018 178 degrees QTc Int : 443 ms Atrial fibrillation with rapid ventricular response Premature ventricular complexes Inferior-posterior infarct (cited on or before 20-FEB-2019) Abnormal ECG When compared with ECG of 21-FEB-2019 00:53, Atrial fibrillation has replaced Sinus rhythm ST now depressed in Anterolateral leads T wave inversion now evident in Lateral leads Confirmed by Prakash Esquivel ([id number]) on 08/25/2020 12:28:16 PM Referred By: REFERRED SELF Confirmed By:Prakash Esquivel
--- NOTE | 2020-08-25 12:36 | Discharge Summary ---
Date of Service August 25, 2020 Admission HPI Per Admitting Provider 70 YOM with past medical history of HTN, HLD, Aortic Stenosis, "prediabetic", spinal stenosis, arthritis, OA, Obesity, MOSHE, prostatectomy for prostate CA (2006) . Patient comes in today for complaints of fast heart rate, lightheadedness, and dyspnea. This has been on going since [id number]. This occurred after he was helping his marycruz move. He felt like he was staying hydrated during that time. The patient reports that he had a short episode of afib noted in the past, and was only on Metoprolol at that time, but was taken off. He endorses that since then he has not noted any palpitations or symptoms like this. he has not tried anything at home for relief. He denies any chest pain, nausea or vomiting. The patient had a stress test done in in 2016 hitting 100% MPHR with normal LVF and moderate AV sclerosis. In the EMD the patient was started on heparin drip secondary to elevated troponin I at 1.23. For his rate control he was given Lopressor 5mg IV with decrease in HR to 110-120, he received another 5mg of Lopressor IV along with Lopressor 25mg PO. Patient will be admitted for rate control, continue anticoagulation with Heparin drip while trending out his troponin I, ECHO, and cardiology consult in regards to rate vs. rhythm control skilled nursing. Admission Exam Per Admitting Provider General: awake, alert, no apparent distress Head: Normocephalic, atraumatic ENT: PERRL, EOMI, no pharyngeal exudate, mucous membranes moist Neuro: AAO x 3, speech clear and appropriate, strength intact bilaterally 5/5, sensation intact and equal all extremities and dermatomes, no pronator drift Chest: equal rise and fall of the chest, no accessory muscle use, no heaves or thrills, Clear to auscultation, on room air, Cardiac: irregular rate and rhythm, telemetry reviewed- afib with RVR, Systolic Murmur, skin warm dry, cap refill <3 seconds, peripheral pulses +2 no JVD, no murmur, no edema GI: NABS x 4 quadrants, soft, nontender to palpation, no rebound, guarding or tenderness : Spontaneously voiding, no pain, no CVA tenderness Extremities: Normal inspection, no peripheral edema or erythema, calfs nontender to palpation Psych: Normal mood and affect Skin: no rash or erythema Principal Diagnosis severe multivessel coronary artery disease Discharge Exam General: A&Ox3. NAD. Cooperative. HEENT: Atraumatic, normocephalic. Pulm: CTAB. -wheezes, -rales, -rhonchi. Symmetrical chest rise. No respiratory distress. Cardiac: RRR, -mrg. 2+ LE edema. Abdominal: Nontender, nondistended, soft. Discharge Data Allergies Allergy/AdvReac Type Severity Reaction Status Date / Time ramipril Allergy Mild Swollen Verified 08/23/20 18:57 lips Consultations 08/23/20 18:57 ED Decision to Admit Stat 08/23/20 22:08 Consult Cardiology Routine Procedures Performed Operation Date: 08/25/20 09:30 Actual Procedures p Cath, Left with Cors and Vent - Andrea Hughes MD s Cineradiography w/Routine Exam - Andrea Hughes MD Ordered Studies 08/25/20 07:12 CL Cath Imgs for PACS use only Routine Hospital Course (1) Atrial fibrillation with rapid ventricular response: Emiliano Bush is a 70M w/ hx of pAF, HLD, gout, HTN who presented to [facility] (admitted 08/23-08/25) w/ 5 days of ALBERTS w/ 1-2 days of exacerbation attributed to afib w/ RVR. Upon additional workup, a cardiac catheterization was performed and he was found to have severe CAD w/ 80-90% distal L main stenosis and 100% chronic RCA occlusion requiring transfer to [facility] for CABG. NSTEMI with Severe multivessel CAD, 90% distal L main, 80% ostial circumflex, 100% mid RCA chronic total occlusion - per 08/25 cardiac cath LM -large caliber, 80 to 90% distal calcified stenosis extending into circumflex/LAD LAD -large caliber, calcified, 40% ostial, 30% diffuse proximal to mid disease, large distal vessel without significant disease and wraps around apex. D1 with 40% ostial stenosis. Circumflex -calcified, 70-80% ostial, mild diffuse proximal disease, large OM 2 without significant disease. RCA - dominant, large caliber, heavily calcified, 100% mid chronic total occlusion. Distal vessels fill retrograde via left to right collaterals. -Continue Heparin infusion -continue metoprolol, atorvastatin, aspirin -Transfer to [facility] for evaluation of CABG, accepted by Dr. Trejo Acute HFpEF - 08/24 echo EF 50-55%. no RWMA. mod LVH. moderate valvular aortic stenosis. moderate mitral regurg. - symptomatic improvement dose of 40 mg IV lasix, so a 2nd dose was provided Paroxysmal atrial fibrillation w/ RVR - etiology considered: valvular afib vs ischemic event - 1 prior episode of afib in distant past, otherwise patient was unaware of reoccurrence - 08/23 echo: mod concentric LVH. ef 50-55. no rwma. mod valvular . mod MR - cardiology consulted. current regimen: metoprolol 50 PO BID. PRN Lopressor 5mg IV q4 PRN HR >120 - digoxin was trialed, since discontinued - rates up to 150s, continue titrating regimen - CHADVASC-2 HAS-BLED-2. - continue IV heparin drip - to be transitioned to PO on discharge. moderate aortic stenosis - echo as above - Currently no acute needs- no limitations with activity or changing symptoms hypertension Appears well controlled, mostly normotensive - metoprolol 50 PO BID as above dyslipidemia Continue Atorvastatin 80 mg QHS hx of prostate cancer Follows with urology - no LUTS at this time mild obstructive sleep apnea Patient with sleep study done in 2018 with CPAP of 12 reports he has masks at home but was never able to get CPAP machine - Case management consult for assistance - overnight, patient seemed to respond well to cpap w/ transient improvement in his tachycardia obesity Patient engaged in trying to decrease weight FULL CODE DISPO: Transfer to [facility] for evaluation for CABG (2) Elevated troponin: (3) Mild aortic stenosis: (4) HTN (hypertension): (5) Dyslipidemia: (6) Obesity: (7) History of prostate cancer: (8) Mild sleep apnea: Total Time Total Time Spent Total Time Spent (In Minutes): See attending documentation. Discharge Plan Discharge Items Patient Disposition: Transfer Acute Care Hospital Reason For Visit: AFIB Discharge Diagnosis: Severe multivessel coronary artery disease Condition on Discharge: Fair Activity: Per Instructions section Non-emergency contact: Primary Care Provider and Motion Graphics Artist Call non-emergency contact if: you have any medication questions and you have a fever Follow-up/Referrals: Elian Vazquez DO [Primary Care Provider] - Diet: Heart Healthy Addtl Attending Provider Instructions: Emiliano Bush is a 70M w/ hx of pAF, HLD, gout, HTN who presented to [facility] w/ 5 days of ALBERTS w/ 1-2 days of exacerbation attributed to afib w/ RVR. Upon addition al workup, a cardiac catheterization was performed and he was found to have severe CAD w/ 80-90% distal L main stenosis and 100% chronic RCA occlusion requiring transfer to [facility] for CABG. Severe multivessel CAD, 90% distal L main, 80% ostial circumflex, 100% mid RCA chronic total occlusion - per 08/25 cardiac cath LM -large caliber, 80 to 90% distal calcified stenosis extending into circumfle x/LAD LAD -large caliber, calcified, 40% ostial, 30% diffuse proximal to mid disease, large distal vessel without significant disease and wraps around apex. D1 with 40% ostial stenosis. Circumflex -calcified, 70-80% ostial, mild diffuse proximal disease, large OM 2 without significant disease. RCA - dominant, large caliber, heavily calcified, 100% mid chronic total occlusion. Distal vessels fill retrograde via left to right collaterals. -Continue Heparin infusion -Transfer to [facility] for evaluation of CABG, accepted by Dr. Trejo Acute HFpEF - 08/24 echo EF 50-55%. no RWMA. mod LVH. moderate valvular aortic stenosis. moderate mitral regurg. - symptomatic improvement dose of 40 mg IV lasix, so a 2nd dose was provided Paroxysmal atrial fibrillation w/ RVR - etiology considered: valvular afib vs ischemic event - 1 prior episode of afib in distant past, otherwise patient was unaware of reoccurrence - 08/23 echo: mod concentric LVH. ef 50-55. no rwma. mod valvular . mod MR - cardiology consulted. current regimen: metoprolol 50 PO BID. PRN Lopressor 5mg IV q4 PRN HR >120 - digoxin was trialed, since discontinued - rates up to 150s, continue titrating regimen - CHADVASC-2 HAS-BLED-2. Cardiology recommending anticoagulation with Eliquis prior to discharge elevated troponin - initially, considered demand ischemia. No midsternal chest pain, but had some left lateral rib pain which is less consistent w/ anginal cp - old q waves in inferior leads - peaked at ~1.2->1.1 - patient was on heparin drip this admission - cardiac cath on 08/25 because of above changes in context of strong family cardiac hx. results above moderate aortic stenosis - echo as above - Currently no acute needs- no limitations with activity or changing symptoms hypertension Appears well controlled, mostly normotensive - metoprolol 50 PO BID as above dyslipidemia Continue Atorvastatin 80 mg QHS hx of prostate cancer Follows with urology - no LUTS at this time mild obstructive sleep apnea Patient with sleep study done in 2018 with CPAP of 12 reports he has masks at home but was never able to get CPAP machine - Case management consult for assistance - overnight, patient seemed to respond well to cpap w/ transient improvement in his tachycardia obesity Patient engaged in trying to decrease weight FULL CODE DISPO: Transfer to [facility] for evaluation for CABG Pending Studies at Discharge: No Stand-Alone Forms: My [facility] [employer] Skilled Items Patient informed of condition?: Yes DNR: No Discharge Level of Care: Other Communicable Disease: No Discharge Prognosis: Stable Lines: Peripheral IV Urinary Catheter: No Medications and DC Order Prescriptions: Continued atorvastatin [Lipitor] 80 mg tablet 80 mg PO QPM Qty: 90 RF: 3 aspirin 325 mg Tablet,Delayed Release (Dr/Ec) 325 mg PO QAM RF: 0 cholecalciferol (vitamin D3) [Vitamin D3] 1,000 unit Capsule 1,000 unit PO QAM RF: 0 cyanocobalamin (vitamin B-12) 1,000 mcg capsule 2,000 mcg PO QAM RF: 0 Discharge Orders: Discharge Order (Routine); Ordered 08/25/20 Ordered By: Danish Watters Admission Data Admit Date/Time: 08/23/20 21:23 Attending Provider: Bella Hernandez Admit Provider: Zaid Mabry Primary Care Provider: Elian Vazquez Other Providers: Mike Bennett ; Prakash Esquivel ; Izabella Chavez Other Interventions: Discharge Summary Assessment (RN) Last Done: 08/25/20 15:13 Supervising Physician Co-Signing Physician Notes Resident Physician Supervision Note: I independently interviewed and examined the patient and verified the baum history and physical, reviewed labs and image studies and agree with resident Dr. Watetrs findings and care plan. Resident Activity Tracking Resident Involvement: Resident Care Provided Care Provided: Adult Hospital Medicine
--- NOTE | 2020-08-25 12:41 | Electrocardiogram Report ---
Test Reason : Blood Pressure : / mmHG Vent. Rate : 112 BPM Atrial Rate : 000 BPM P-R Int : 000 ms QRS Dur : 100 ms QT Int : 360 ms P-R-T Axes : 000 020 067 degrees QTc Int : 491 ms Atrial fibrillation with rapid ventricular response Inferior infarct (cited on or before 20-FEB-2019) Abnormal ECG When compared with ECG of 23-AUG-2020 17:06, (unconfirmed) Vent. rate has decreased BY [address] less depressed in Anterior leads T wave inversion no longer evident in Lateral leads Confirmed by Prakash Esquivel ([id number]) on 08/25/2020 12:41:36 PM Referred By: REFERRED SELF Confirmed By:Prakash Esquivel
--- NOTE | 2020-08-25 12:46 | Electrocardiogram Report ---
Test Reason : Blood Pressure : / mmHG Vent. Rate : 120 BPM Atrial Rate : 170 BPM P-R Int : 000 ms QRS Dur : 092 ms QT Int : 312 ms P-R-T Axes : 000 037 095 degrees QTc Int : 440 ms Atrial fibrillation with rapid ventricular response with premature ventricular or aberrantly conducte d complexes Cannot rule out Inferior infarct (cited on or before 20-FEB-2019) Abnormal ECG When compared with ECG of 24-AUG-2020 01:27, (unconfirmed) No significant change was found Confirmed by Prakash Esquivel ([id number]) on 08/25/2020 12:46:26 PM Referred By: REFERRED SELF Confirmed By:Prakash Esquivel
--- NOTE | 2020-08-25 12:46 | Electrocardiogram Report ---
Test Reason : Blood Pressure : / mmHG Vent. Rate : 124 BPM Atrial Rate : 133 BPM P-R Int : 000 ms QRS Dur : 092 ms QT Int : 306 ms P-R-T Axes : 000 031 099 degrees QTc Int : 439 ms Atrial fibrillation with rapid ventricular response Cannot rule out Inferior infarct (cited on or before 20-FEB-2019) Abnormal ECG When compared with ECG of 23-AUG-2020 21:26, (unconfirmed) No significant change was found Confirmed by Prakash Esquivel ([id number]) on 08/25/2020 12:45:36 PM Referred By: REFERRED SELF Confirmed By:Prakash Esquivel
[2020-08-25 13:29] LABS: Partial Thromboplastin Ratio 1.7; Partial Thromboplastin Time 44.2 Seconds (21.0-31.0)
--- NOTE | 2020-08-26 13:47 | Electrocardiogram Report ---
Test Reason : Blood Pressure : / mmHG Vent. Rate : 108 BPM Atrial Rate : 117 BPM P-R Int : 000 ms QRS Dur : 096 ms QT Int : 338 ms P-R-T Axes : 000 029 147 degrees QTc Int : 452 ms Atrial fibrillation with rapid ventricular response with premature ventricular or aberrantly conducte d complexes Cannot rule out Inferior infarct (cited on or before 20-FEB-2019) Abnormal ECG When compared with ECG of 24-AUG-2020 05:21, (unconfirmed) No significant change was found Confirmed by Prakash Esquivel ([id number]) on 08/26/2020 1:46:51 PM Referred By: REFERRED SELF Confirmed By:Prakash Esquivel
== END 2020-08-25 15:00 | disposition short-term general hospital (02) | DRG 280 ==
LOC: ED 16:48 → 2S 21:23 → SUATTDRO 21:23 → 2S 21:44